=== PATIENT | female | born 1955 | race Caucasian/White ===

== ENCOUNTER → 2019-03-28 | Outpatient (CLI) | payer MEDICARE, OTHER, SELFPAY ==
[2019-03-28 19:03] VITALS: BMI 37.2
[2019-03-28 22:51] LABS: Absolute Lymphocyte Count 2.37 X10^3/uL (0.83-4.51); Absolute Neutrophil Count 3.5 X10^3/uL (2.0-7.7); Basophil# 0.06 X10^3/uL; Basophil% 0.9 % (0-1); Eosinophil# 0.35 X10^3/uL; Eosinophils% 5.1 % (0-5); Hematocrit 39.6 % (37-47); Hemoglobin 13.1 g/dL (12.0-15.0); Lymphocyte # 2.37 X10^3/ul (4.0); Lymphocyte % 34.2 % (19-41); Mean Corp Hgb Conc 33.1 g/dL (32-36); Mean Corpuscular Volume 90.8 fL (81-99); Mean Platelet Vol. 10.6 fl (6.2-12.0); Monocyte% 8.7 % (0-10); NRBC Flagged by Analyzer 0 % (0-5); Neutrophil # 3.54 X10^3/uL (2.7-7.7); Platelet Count 282 K/mm3 (150-450); RBC Distribution Width CV 12.6 % (11.6-14.6); RBC Distribution Width SD 41.8 fl (35.1-43.9); Red Blood Count 4.36 M/mm3 (4.2-5.4); White Blood Count 6.9 K/mm3 (4.4-11.0)
[2019-03-28 23:13] LABS: AST(SGOT) 28 U/L (15-37); Alanine Aminotransfer ALT/SGPT 35 U/L (13-56); Albumin, Serum 3.6 g/dL (3.2-5.0); Alkaline Phosphatase 133 U/L (45-117); Anion Gap 3 (5-15); BUN 17 mg/dL (7-18); BUN/Creat Ratio 17.2 RATIO (10-20); Calcium,Total 8.4 mg/dL (8.5-10.1); Chloride 109 mmol/L (98-107); Cholesterol 143 mg/dL (200); Creatinine, Serum 0.99 mg/dL (0.55-1.02); EST Glomerular Filtration Rate 60 mL/min (>60); Est Glom Filt Rate - Afr Amer 72 mL/min (>60); Globulin 3.6 g/dL (2.2-4.2); Glucose 90 mg/dL (74-106); High Density Lipoprotein 67 mg/dL; Potassium 3.4 mmol/L (3.5-5.1); Protein, Total 7.2 g/dL (6.4-8.2); Sodium Level 141 mmol/L (136-145); Thyroid Stim Hormone (TSH) 2.85 uIU/mL (0.358-3.74); Triglycerides 113 mg/dL; Very Low Density Lipoprotein 23 mg/dL (5-40)
== END | disposition home or self-care (01) ==
PROVIDERS: Referring Provider Nurse Practitioner; Visit Provider Nurse Practitioner
DX: I10 Essential (primary) hypertension (principal); E78.5 Hyperlipidemia, unspecified; E03.9 Hypothyroidism, unspecified
CPT/HCPCS: 80053; 80061; 84443; 85025

== ENCOUNTER → 2021-02-21 | Outpatient (CLI) | payer MEDICARE, OTHER, SELFPAY ==
[2021-02-21 17:09] VITALS: BMI 34.4
[2021-02-21 21:58] LABS: Absolute Lymphocyte Count 2.61 X10^3/uL (0.83-4.51); Absolute Neutrophil Count 3.2 X10^3/uL (2.0-7.7); Basophil# 0.08 X10^3/uL; Basophil% 1.2 % (0-1); Eosinophil# 0.36 X10^3/uL; Eosinophils% 5.4 % (0-5); Hematocrit 41.4 % (37-47); Hemoglobin 13.5 g/dL (12.0-15.0); Lymphocyte # 2.61 X10^3/ul (0.83-4.51); Lymphocyte % 38.8 % (19-41); Mean Corp Hgb Conc 32.6 g/dL (32-36); Mean Corpuscular Hgb 29.5 pg (27.0-32.0); Mean Corpuscular Volume 90.4 fL (81-99); Mean Platelet Vol. 11.1 fl (6.2-12.0); Monocyte# 0.47 X10^3/uL; NRBC Flagged by Analyzer 0 % (0-5); Neutrophil # 3.18 X10^3/uL (2.7-7.7); Neutrophil % 47.3 % (47-70); Platelet Count 296 K/mm3 (150-450); RBC Distribution Width CV 12.3 % (11.6-14.6); RBC Distribution Width SD 40.6 fl (35.1-43.9); Red Blood Count 4.58 M/mm3 (4.2-5.4); White Blood Count 6.7 K/mm3 (4.4-11.0)
[2021-02-21 22:22] LABS: AST(SGOT) 29 U/L (15-37); Alanine Aminotransfer ALT/SGPT 36 U/L (13-56); Albumin, Serum 3.6 g/dL (3.2-5.0); Alkaline Phosphatase 112 U/L (45-117); Anion Gap 8 (5-15); BUN 16 mg/dL (7-18); BUN/Creat Ratio 16.5 RATIO (10-20); Chloride 101 mmol/L (98-107); Cholesterol 158 mg/dL (200); Creatinine, Serum 0.97 mg/dL (0.55-1.02); EST Glomerular Filtration Rate 61 mL/min (>60); Est Glom Filt Rate - Afr Amer 74 mL/min (>60); Globulin 3.7 g/dL (2.2-4.2); Glucose 137 mg/dL (74-106); High Density Lipoprotein 72 mg/dL; Protein, Total 7.3 g/dL (6.4-8.2); Sodium Level 137 mmol/L (136-145); Thyroid Stim Hormone (TSH) 0.28 uIU/mL (0.358-3.74); Triglycerides 128 mg/dL; Very Low Density Lipoprotein 26 mg/dL (5-40)
[2021-02-24 16:40] LABS: Vitamin D 1,25-Dihydroxy 53.1 pg/mL (19.9-79.3)
== END | disposition home or self-care (01) ==
PROVIDERS: Visit Provider Nurse Practitioner
DX: E03.9 Hypothyroidism, unspecified (principal); E78.5 Hyperlipidemia, unspecified; E55.9 Vitamin D deficiency, unspecified
CPT/HCPCS: 80053; 80061; 82652; 84443; 85025

== ENCOUNTER → 2022-01-26 | Outpatient (CLI) | payer MEDICARE, OTHER, SELFPAY ==
[2022-01-26 22:51] LABS: Absolute Lymphocyte Count 2.37 X10^3/uL (0.83-4.51); Absolute Neutrophil Count 2.7 X10^3/uL (2.0-7.7); Basophil# 0.08 X10^3/uL; Basophil% 1.4 % (0-1); Eosinophil# 0.36 X10^3/uL; Eosinophils% 6.1 % (0-5); Lymphocyte # 2.37 X10^3/ul (0.83-4.51); Mean Corp Hgb Conc 34.1 g/dL (32-36); Mean Corpuscular Hgb 30.1 pg (27.0-32.0); Mean Corpuscular Volume 88.2 fL (81-99); Mean Platelet Vol. 10.9 fl (6.2-12.0); Monocyte# 0.38 X10^3/uL; Monocyte% 6.4 % (0-10); NRBC Flagged by Analyzer 0 % (0-5); Neutrophil # 2.73 X10^3/uL (2.7-7.7); Neutrophil % 46.1 % (47-70); Platelet Count 312 K/mm3 (150-450); RBC Distribution Width CV 12.5 % (11.6-14.6); RBC Distribution Width SD 40.4 fl (35.1-43.9); Red Blood Count 4.65 M/mm3 (4.2-5.4); White Blood Count 5.9 K/mm3 (4.4-11.0)
[2022-01-26 23:10] LABS: ALB/GLOB Ratio 1.1 RATIO (0.9-2.4); AST(SGOT) 30 U/L (15-37); Alanine Aminotransfer ALT/SGPT 36 U/L (13-56); Albumin, Serum 3.8 g/dL (3.2-5.0); Alkaline Phosphatase 122 U/L (45-117); Anion Gap 6 (5-15); BUN 17 mg/dL (7-18); BUN/Creat Ratio 21.1 RATIO (10-20); Calcium,Total 9.3 mg/dL (8.5-10.1); Chloride 107 mmol/L (98-107); Cholesterol 175 mg/dL (200); EST Glomerular Filtration Rate 75 mL/min (>60); Est Glom Filt Rate - Afr Amer 91 mL/min (>60); Globulin 3.6 g/dL (2.2-4.2); Glucose 114 mg/dL (74-106); High Density Lipoprotein 83 mg/dL; Potassium 3.6 mmol/L (3.5-5.1); Protein, Total 7.4 g/dL (6.4-8.2); Sodium Level 140 mmol/L (136-145); Triglycerides 88 mg/dL; Very Low Density Lipoprotein 18 mg/dL (5-40)
[2022-01-30 19:46] LABS: Vitamin D 1,25-Dihydroxy 63.9 pg/mL (24.8-81.5)
== END | disposition home or self-care (01) ==
PROVIDERS: Visit Provider Nurse Practitioner
DX: I10 Essential (primary) hypertension (principal); E78.5 Hyperlipidemia, unspecified; E55.9 Vitamin D deficiency, unspecified
CPT/HCPCS: 80053; 80061; 82652; 85025

== ENCOUNTER → 2023-02-15 | Outpatient (CLI) | payer MEDICARE, OTHER, SELFPAY ==
[2023-02-15 22:28] LABS: Absolute Lymphocyte Count 2.95 X10^3/uL (0.83-4.51); Absolute Neutrophil Count 3.1 X10^3/uL (2.0-7.7); Basophil% 1.4 % (0-1); Eosinophil# 0.43 X10^3/uL; Hematocrit 42.5 % (37-47); Hemoglobin 13.9 g/dL (12.0-15.0); Lymphocyte # 2.95 X10^3/ul (0.83-4.51); Lymphocyte % 41.3 % (19-41); Mean Corp Hgb Conc 32.7 g/dL (32-36); Mean Corpuscular Hgb 29.9 pg (27.0-32.0); Mean Corpuscular Volume 91.4 fL (81-99); Mean Platelet Vol. 11.3 fl (6.2-12.0); Monocyte# 0.52 X10^3/uL; Monocyte% 7.3 % (0-10); NRBC Flagged by Analyzer 0 % (0-5); Neutrophil # 3.14 X10^3/uL (2.7-7.7); Neutrophil % 43.9 % (47-70); Platelet Count 336 K/mm3 (150-450); RBC Distribution Width CV 12.6 % (11.6-14.6); RBC Distribution Width SD 41.6 fl (35.1-43.9); Red Blood Count 4.65 M/mm3 (4.2-5.4); White Blood Count 7.2 K/mm3 (4.4-11.0)
[2023-02-15 22:54] LABS: ALB/GLOB Ratio 0.9 RATIO (0.9-2.4); AST(SGOT) 33 U/L (15-37); Alanine Aminotransfer ALT/SGPT 44 U/L (13-56); Albumin, Serum 3.7 g/dL (3.2-5.0); Alkaline Phosphatase 128 U/L (45-117); Anion Gap 8 (5-15); BUN 19 mg/dL (7-18); BUN/Creat Ratio 17.6 RATIO (10-20); Calcium,Total 9.5 mg/dL (8.5-10.1); Chloride 108 mmol/L (98-107); Cholesterol 183 mg/dL (200); Creatinine, Serum 1.08 mg/dL (0.55-1.02); EST Glomerular Filtration Rate 54 mL/min (>60); Est Glom Filt Rate - Afr Amer 65 mL/min (>60); Globulin 3.9 g/dL (2.2-4.2); Glucose 165 mg/dL (74-106); High Density Lipoprotein 68 mg/dL; Protein, Total 7.6 g/dL (6.4-8.2); Sodium Level 142 mmol/L (136-145); Thyroid Stim Hormone (TSH) 1.24 uIU/mL (0.358-3.74); Triglycerides 191 mg/dL; Very Low Density Lipoprotein 38 mg/dL (5-40)
== END | disposition home or self-care (01) ==
PROVIDERS: Referring Provider Nurse Practitioner; Visit Provider Nurse Practitioner
DX: I10 Essential (primary) hypertension (principal); E78.5 Hyperlipidemia, unspecified; E03.9 Hypothyroidism, unspecified
CPT/HCPCS: 80053; 80061; 84443; 85025

== ENCOUNTER → 2024-03-07 | Outpatient (CLI) | payer MEDICARE, OTHER, SELFPAY ==
[2024-03-07 21:38] LABS: Absolute Lymphocyte Count 3.05 X10^3/uL (0.83-4.51); Absolute Neutrophil Count 4.1 X10^3/uL (2.0-7.7); Basophil# 0.08 X10^3/uL; Eosinophils% 4.9 % (0-5); Hematocrit 41.6 % (37-47); Hemoglobin 13.8 g/dL (12.0-15.0); Lymphocyte # 3.05 X10^3/ul (0.83-4.51); Lymphocyte % 37.1 % (19-41); Mean Corp Hgb Conc 33.2 g/dL (32-36); Mean Corpuscular Hgb 29.6 pg (27.0-32.0); Mean Corpuscular Volume 89.1 fL (81-99); Mean Platelet Vol. 11.1 fl (6.2-12.0); Monocyte% 7.3 % (0-10); NRBC Flagged by Analyzer 0 % (0-5); Neutrophil # 4.07 X10^3/uL (2.7-7.7); Neutrophil % 49.3 % (47-70); Platelet Count 289 K/mm3 (150-450); RBC Distribution Width CV 12.7 % (11.6-14.6); RBC Distribution Width SD 41.3 fl (35.1-43.9); Red Blood Count 4.67 M/mm3 (4.2-5.4); White Blood Count 8.2 K/mm3 (4.4-11.0)
[2024-03-07 21:58] LABS: ALB/GLOB Ratio 0.9 RATIO (0.9-2.4); AST(SGOT) 35 U/L (15-37); Alanine Aminotransfer ALT/SGPT 32 U/L (13-56); Albumin, Serum 3.5 g/dL (3.2-5.0); Alkaline Phosphatase 116 U/L (45-117); Anion Gap 9 (5-15); BUN 18 mg/dL (7-18); BUN/Creat Ratio 23.3 RATIO (10-20); Calcium,Total 9.4 mg/dL (8.5-10.1); Chloride 104 mmol/L (98-107); Cholesterol 183 mg/dL (200); Creatinine, Serum 0.77 mg/dL (0.55-1.02); EST Glomerular Filtration Rate 78 mL/min (>60); Est Glom Filt Rate - Afr Amer 95 mL/min (>60); Globulin 3.7 g/dL (2.2-4.2); Glucose 114 mg/dL (74-106); High Density Lipoprotein 82 mg/dL; Potassium 3.6 mmol/L (3.5-5.1); Protein, Total 7.2 g/dL (6.4-8.2); Sodium Level 138 mmol/L (136-145); Triglycerides 158 mg/dL; Very Low Density Lipoprotein 32 mg/dL (5-40)
== END | disposition home or self-care (01) ==
PROVIDERS: Referring Provider Nurse Practitioner; Visit Provider Nurse Practitioner
DX: E78.5 Hyperlipidemia, unspecified (principal); F41.1 Generalized anxiety disorder; I10 Essential (primary) hypertension; G47.00 Insomnia, unspecified; R73.9 Hyperglycemia, unspecified; E03.9 Hypothyroidism, unspecified
CPT/HCPCS: 80053; 80061; 84443; 85025

== ENCOUNTER → 2025-03-03 | Outpatient (CLI) | payer MEDICARE, OTHER, SELFPAY ==
--- OUTSIDE RECORDS SUMMARY | 2025-03-03 21:55 | XMS RPT_ITS | CCD ---
Author Organization [facility] Care Team Providers Care Truck Dock Material Mover Name Role Phone BHUPINDER DOMINGUEZ Unavailable Unavailable BHUPINDER DOMINGUEZ Unavailable Unavailable Vincenzo LACE SEWER.Bhupinder MOORE Primary Care Provide r Vincenzo LACE SEWER.Bhupinder MOORE Primary Care Provide r VEL RITTER Attending Unavailable BHUPINDER DOMINGUEZ Primary Care Unavailable VEL RITTER Attending Unavailable BHUPINDER DOMINGUEZ Primary Care Unavailable ROBERT KIMBLE Referring Unavailable Vincenzo MANAGER GENERAL, Bhupinder Referring Unavailable Vincenzo MANAGER GENERAL, Bhupinder Attending Unavailable Care Physician, No Primary Primary Care Unava ilable Vincenzo LACE SEWER.Bhupinder MOORE Primary Care Provide r BHUPINDER DOMINGUEZ Referring Unavailable BHUPINDER DOMINGUEZ Primary Care Unavailable Allergies Allergy Classification Reported Allergen(s) Allergy Type Date of Onset Reaction(s) Facility (9 sources) Contrast media; Translations: [CONTRAST DYE] Propensity to adverse reactions to drug (disorder) 05-15-20 11 Swelling [facility] Other [facility] (2 sources) buPROPion Drug Allergy 04-23-20 18 NAUSEA, DIZZINESS, AND FEELS HIGH [facility] (1 source) Iodine Drug Allergy 04-23-20 18 [facility] Work Phone: (1 source) Triiodobenzoic Acids Allergy to substance 08-22-19 [facility] (1 source) buPROPion Drug Allergy 04-23-20 18 [facility] Repository (1 source) Iodinated Contrast Media Drug allergy (disorder) 08-22-19 23 [facility] Repository Medications Current Medications Medication Drug Class(es) Dates Sig (Normalized) Sig (Original) ALPRAZolam 0.5 mg oral tablet (16 sources) Benzodiazepine Start: 04-23-2018 End: 02-15-2023 take 0.5 mg by mouth once daily Alprazolam Active 0.5 MG PO DAILY February 15, 2023 4:11pm cholecalciferol 0.1 mg oral capsule (6 sources) Vitamin D cholecalciferol , vitamin D3, (VITAMIN D3) 4,000 unit cap Take by mouth once daily. Active Comment on above: Take by mouth once d aily. CYANOCOBALAMIN, VITAMIN B-12, (VITAMIN B-12 ORAL) (6 sources) CYANOCOBALAMIN, VITAMIN B-12, (VITAMIN B-12 ORAL) Take by mouth once daily. Active CYANOCOBALAMIN, VITAMIN B-12, (VITAMIN B-12 ORAL) Take by mouth once daily. 0 Active Comment on above: Take by mouth once d aily. ezetimibe / Simvastatin (6 sources) HMG-CoA Reductase Inhibitor, Dietary Cholesterol Absorption Inhibitor ezetimibe 10 mg tab 10 mg, simvastatin 10 mg tab 10 mg Take by mouth once daily. Active ezetimibe 10 mg tab 10 mg, simvastatin 10 mg tab 10 mg Take by mouth once daily. 0 Active Comment on above: Take by mouth once d aily. Losartan (6 sources) Angiotensin 2 Receptor Susan L OSARTAN POTASSIUM (LOSARTAN ORAL) Take by mouth. Active LOSARTAN POTASSI UM (LOSARTAN ORAL) Take by mouth. 0 Active Comment on above: Take by mouth. meclizine hydrochloride 12.5 mg oral tablet (2 sources) Antiemetic Start: 1 take 12.5 mg by mouth three times daily Meclizine Active 12.5 MG PO THREE TIMES A DAY February 21, 2021 12:00am naproxen 500 mg oral tablet (4 sources) Nonsteroidal Anti-inflammatory Drug Start: 3 take 1 tablet by mouth twice daily at mealtime naproxen (NAPROSYN) 500 mg tablet Take 1 tablet by mouth twice daily with meals. Take with food. 28 tablet 04/17/2023 Active Comment on above: Take 1 tablet by [facility] th twice daily with meals. Take with food. zolpidem tartrate 10 mg oral tablet (16 sources) gamma-Aminobutyric Acid-ergic Agonist Start: 8 End: 3 take 10 mg by mouth at bedtime Zolpidem Active 10 MG PO AT BEDTIME February 15, 2023 4:12pm Completed/Discontinued Medications Medication Drug Class(es) Dates Sig (Normalized) Sig (Original) atomoxetine 25 mg oral capsule (20 sources) Norepinephrine Reuptake Inhibitor Start: 04-23-2018 End: 02-15-2023 take 1 capsule by mouth once daily Atomoxetine (Strattera) 25 mg capsule Discontinued 25 MG PO .QD June 24, 2018 3:34pm March 28, 2019 7:09pm ATOMOXETINE HCL (STRATTERA ORAL) Take by mouth. Active ATOMOXETINE HCL (STRATTERA ORAL) Take by mouth. 0 Active Comment on above: Take by mouth. azithromycin 250 mg oral tablet (2 sources) Macrolide Antimicrobial Start: End: Azithromycin Discontinued 250 MG PO daily 6 April 23, 2019 12:00am April 28, 2019 12:08am 2 po qd for 1 day then 1 po qd for 4 days with food or after eating ciprofloxacin 500 mg oral tablet (2 sources) Quinolone Antimicrobial Start: End: take 1 tablet by mouth twice daily Ciprofloxacin Hcl (Cipro) 500 mg tablet Discontinued 500 MG PO TWICE A DAY May 15, 2022 5:32pm February 15, 2023 4:09pm cloNIDine hydrochloride 0.1 mg oral tablet (12 sources) Central alpha-2 Adrenergic Agonist Start: End: take 0.1 mg by mouth at bedtime Clonidine Hcl Discontinued 0.1 MG PO BEDTIME June 24, 2018 3:34pm March 28, 2019 7:09pm hydroCHLOROthiazide 12.5 mg / losartan potassium 50 mg oral tablet (17 sources) Thiazide Diuretic, Angiotensin 2 Receptor Susan Start: End: take 1 tablet by mouth once daily Losartan-Hydrochlor othiazide Discontinued 1 TABLET PO DAILY August 17, 2021 1:25pm January 26, 2022 3:10pm Start: 04-23-2018 End: 02-15-2023 take 1 tablet by mouth once daily Losartan-Hydrochlorothiazide Discontinue d 1 TABLET PO DAILY June 24, 2018 3:35pm March 28, 2019 7:09pm levothyroxine sodium 0.15 mg oral tablet (20 sources) l-Thyroxine Start: 04-04-2019 End: 02-16-2023 take 150 ug by mouth once daily Levothyroxine Discontinued 150 MCG PO DAILY April 10, 2019 10:16pm March 09, 2020 5:20pm Start: 04-23-2018 End: 04-04-2019 take 1 capsule by mouth once daily levothyroxine 150 mcg capsule Discontinued 150 MCG PO DAILY April 02, 2019 7:47pm April 04, 2019 6:54pm LEVOTHYROXINE SO DIUM (SYNTHROID ORAL) Take by mouth. Active LEVOTHYROXINE SO DIUM (SYNTHROID ORAL) Take by mouth. 0 Active Comment on above: Take by mouth. omeprazole 20 mg delayed release oral capsule (15 sources) Proton Pump Inhibitor Start: 04-23-2018 End: 02-15-2023 take 20 mg by mouth once daily Omeprazole Discontinued 20 MG PO DAILY June 24, 2018 3:34pm March 28, 2019 7:09pm predniSONE 10 mg oral tablet (1 source) Start: 02-06-2022 End: 02-15-2023 Prednisone Discontinued 20 MG PO TWICE A DAY 30 February 06, 2022 12:00am February 15, 2023 4:11pm 2 po bid 4D,1 po bid for 4 D, 1 po qd for 4 D 1/2 po qd for 2 days sertraline 100 mg oral tablet (20 sources) Serotonin Reuptake Inhibitor Start: 04-23-2018 End: 02-15-2023 take 100 mg by mouth once daily Sertraline Discontinued 100 MG PO DAILY June 24, 2018 3:35pm March 28, 2019 7:09pm take 3 tablets by mouth once juan antonio ly sertraline 50 mg ORAL tablet Take 150 mg by mouth once daily. Active Comment on above: Take 150 mg by mouth once daily. simvastatin 20 mg oral tablet (15 sources) HMG-CoA Reductase Inhibitor Start: End: take 20 mg by mouth at bedtime Simvastatin Discontinued 20 MG PO AT BEDTIME June 24, 2018 3:35pm March 28, 2019 7:09pm Problems Active Problems Problem Classification Problem Date Documented Da te Episodic/Chronic Allergic reactions (2 sources) Contact dermatitis due to poison evens; Translations: [Allergic contact dermatitis due to plants, except food] 02-06-2022 Episodic Anxiety disorders (1 source) Anxiety disorder; Translations: [Anxiety disorder, unspecified] 05-16-2022 Chronic Conditions associated with dizziness or vertigo (2 sources) Vertigo; Translations: [Dizziness and giddiness] 02-22-2021 Episodic Diabetes mellitus without complication (2 sources) Hyperglycemia; Translations: [Hyperglycemia, unspecified] 03-28-2019 Episodic Disorders of lipid metabolism (9 sources) Hyperlipidemia; Translations: [Hyperlipidemia, unspecified] Onset: 02-08-2011 02-08-2011 Chronic Essential hypertension (8 sources) Hypertensive disorder; Translations: [Essential (primary) hypertension] Onset: 02-08-2011 02-08-2011 Chronic Genitourinary symptoms and ill-defined conditions (1 source) Dysuria; Translations: [Dysuria] 03-13-2022 Episodic Nutritional deficiencies (2 sources) Vitamin D deficiency; Translations: [Vitamin D deficiency, unspecified] 02-21-2021 Chronic Other bone disease and musculoskeletal deformities (2 sources) Osteopenia; Translations: [Other specified disorders of bone density and structure, unspecified site] 03-28-2019 Episodic Other bone disease and musculoskeletal deformities (2 sources) Bone density below reference range; Translations: [Disorder of bone density and structure, unspecified] 03-28-2019 Episodic Other connective tissue disease (2 sources) Left achilles tendonitis; Translations: [Achilles tendinitis, left leg] 05-19-2023 Episodic Other screening for suspected conditions (not mental disorders or infectious disease) (3 sources) Patient encounter status; Translations: [Encounter for screening mammogram for malignant neoplasm of breast] Onset: 06-12-2024 04-22-2019 Episodic Other upper respiratory infections (2 sources) Maxillary sinusitis; Translations: [Chronic maxillary sinusitis] 04-23-2019 Chronic Other upper respiratory infections (2 sources) Pharyngitis; Translations: [Acute pharyngitis, unspecified] 04-23-2019 Episodic Residual codes; unclassified (6 sources) Sleep apnea; Translations: [Sleep apnea, unspecified] Onset: 02-08-2011 02-08-2011 Chronic Residual codes; unclassified (2 sources) Insomnia; Translations: [Insomnia, unspecified] 03-28-2019 Episodic Residual codes; unclassified (1 source) Pain; Translations: [Pain, unspecified] 04-20-2023 Episodic Thyroid disorders (8 sources) Hypothyroidism; Translations: [Hypothyroidism, unspecified] Onset: 08-19-2010 08-19-2010 Chronic Urinary tract infections (1 source) Cystitis; Translations: [Cystitis, unspecified without hematuria] 03-13-2022 Episodic Past or Other Problems Problem Classification Problem Date Documented Da te Episodic/Chronic Unclassified (1 source) FRACTURED KNEES 02-20-2022 Results Test Name Value Interpretation Reference Range Facility DBT Breast - bilateral scree raghu 06-12-2024 IMPRESSION: There are no suspicious mammographic findings in either breast. Routine screening mammogram is recommended. Annual mammogram will be due in 1 year. BI-RADS Category 1: Negative RISK: Based on the Tyrer-Cuzick (TC) risk assessment model, this patient has a 2.0% lifetime risk of developing breast cancer, meaning they are at average risk for developing breast cancer. However, this is only an estimate based on available history provided on the patient's questionnaire. We encourage all patients to talk with their providers about these results, further recommendations for managing breast health, and appropriate supplemental screening options if the patient has dense breast tissue. Interpreting Radiologist: Vinh Morales M.D. Electronically signed on: 06/12/2024 Director Agricultural Services: SHARMILA Transcribe Date/Time: Jun 12 2024 12:58P Dictated by : VINH MORALES MD This examination was interpreted and the report reviewed and electronically signed by: VINH MORALES MD on Jun 12 2024 4:32PM [facility] * * *Final Report* * * DATE OF EXAM: Jun 12 2024 1:28PM JIMENA [id number] - [facility] SCREENING W KESHAV / PROCEDURE REASON: Z12.31 SCREENING * * * * Physician Interpretation * * * * [place] [place] [address] #[id number] - [facility] SCREENING W KESHAV HISTORY: Patient is 69 years old and is seen for screening. No current complaints. Patient states no personal history of breast cancer. Patient states no personal history of other cancers. COMPARISON STUDIES: The present examination has been compared to prior imaging studies dated 05/08/2019 (mammogram), 05/11/2022 (mammogram) and 05/15/2022 (mammogram). MAMMOGRAM TECHNIQUE: The study was acquired using full field digital technology and interpreted from soft copy. Digital Breast Tomosynthesis (DBT) images were obtained and used to assist in the interpretation of this examination. Computer-aided detection was utilized by the radiologist in the interpretation of this examination. MAMMOGRAM FINDINGS: The breasts are almost entirely fatty. No suspicious masses, calcifications or other abnormalities are seen in either breast. There are no significant changes from the prior study. [facility] Provider, [facility] - 06/12/2024 * * *Final Report* * * DATE OF EXAM: Jun 12 2024 1:28PM JIMENA [id number] - [facility] SCREENING W KESHAV / PROCEDURE REASON: Z12.31 SCREENING * * * * Physician Interpretation * * * * [place] [address] #[id number] - [facility] SCREENING W KESHAV HISTORY: Patient is 69 years old and is seen for screening. No current complaints. Patient states no personal history of breast cancer. Patient states no personal history of other cancers. COMPARISON STUDIES: The present examination has been compared to prior imaging studies dated 05/08/2019 (mammogram), 05/11/2022 (mammogram) and 05/15/2022 (mammogram). MAMMOGRAM TECHNIQUE: The study was acquired using full field digital technology and interpreted from soft copy. Digital Breast Tomosynthesis (DBT) images were obtained and used to assist in the interpretation of this examination. Computer-aided detection was utilized by the radiologist in the interpretation of this examination. MAMMOGRAM FINDINGS: The breasts are almost entirely fatty. No suspicious masses, calcifications or other abnormalities are seen in either breast. There are no significant changes from the prior study. IMPRESSION IMPRESSION: There are no suspicious mammographic findings in either breast. Routine screening mammogram is recommended. Annual mammogram will be due in 1 year. BI-RADS Category 1: Negative RISK: Based on the Tyrer-Cuzick (TC) risk assessment model, this patient has a 2.0% lifetime risk of developing breast cancer, meaning they are at average risk for developing breast cancer. However, this is only an estimate based on available history provided on the patient's questionnaire. We encourage all patients to talk with their providers about these results, further recommendations for managing breast health, and appropriate supplemental screening options if the patient has dense breast tissue. Interpreting Radiologist: Vinh Morales M.D. Electronically signed on: 06/12/2024 Director Agricultural Services: SHARMILA Transcribe Date/Time: Jun 12 2024 12:58P Dictated by : VINH MORALES MD This examination was interpreted and the report reviewed and electronically signed by: VINH MORALES MD on Jun 12 2024 4:32PM EST [facility] Radiology Study observation (narrative) [facility] DBT Breast - bilateral scree ningOrdered By: [facility] Provider on 06-12-2024 [facility]IA SCREENING W TOMOon 06-12 [facility] SCREENING W KESHAV * * *Final Report* * * DATE OF EXAM: Jun 12 2024 1:28PM JIMENA [id number] - [facility] SCREENING W KESHAV / PROCEDURE REASON: Z12.31 SCREENING * * * * Physician Interpretation * * * * [place] [address] #[id number] - [facility] SCREENING W KESHAV HISTORY: Patient is 69 years old and is seen for screening. No current complaints. Patient states no personal history of breast cancer. Patient states no personal history of other cancers. COMPARISON STUDIES: The present examination has been compared to prior imaging studies dated 05/08/2019 (mammogram), 05/11/2022 (mammogram) and 05/15/2022 (mammogram). MAMMOGRAM TECHNIQUE: The study was acquired using full field digital technology and interpreted from soft copy. Digital Breast Tomosynthesis (DBT) images were obtained and used to assist in the interpretation of this examination. Computer-aided detection was utilized by the radiologist in the interpretation of this examination. MAMMOGRAM FINDINGS: The breasts are almost entirely fatty. No suspicious masses, calcifications or other abnormalities are seen in either breast. There are no significant changes from the prior study. IMPRESSION: There are no suspicious mammographic findings in either breast. Routine screening mammogram is recommended. Annual mammogram will be due in 1 year. BI-RADS Category 1: Negative RISK: Based on the Tyrer-Cuzick (TC) risk assessment model, this patient has a 2.0% lifetime risk of developing breast cancer, meaning they are at average risk for developing breast cancer. However, this is only an estimate based on available history provided on the patient's questionnaire. We encourage all patients to talk with their providers about these results, further recommendations for managing breast health, and appropriate supplemental screening options if the patient has dense breast tissue. Interpreting Radiologist: Vinh Morales M.D. Electronically signed on: 06/12/2024 Director Agricultural Services: SHARMILA Transcribe Date/Time: Jun 12 2024 12:58P Dictated by : VINH MORALES MD This examination was interpreted and the report reviewed and electronically signed by: VINH MORALES MD on Jun 12 2024 4:32PM EST [id number] CN Normal [facility] CBC W/Diff, Automatedon 08- Absolute Lymph 3.05 X10 3/uL Normal 0.83-4.51 [facility] Comment on above: Performed By: #### L 500.4100, L100.0100, L500.4050, [id number] #### [facility] [address] [place], [address] Absolute Neut 4.1 X10 3/uL Normal 2.0-7.7 [facility] Comment on above: Performed By: #### L 500.4100, L100.0100, L500.4050, [id number] #### [facility] [address] [place], [address] Basophils/100 WBC (Bld) 1.0 % Normal 0-1 [facility] Comment on above: Performed By: #### L 500.4100, L100.0100, L500.4050, [id number] #### [facility] [address] [place], [address] Eosinophils/100 WBC (Bld) 4.9 % Normal 0-5 [facility] Comment on above: Performed By: #### L 500.4100, L100.0100, L500.4050, [id number] #### [facility] [address] [place], [address] Erythrocyte distribution width (RBC) [Ratio] 12.7 % Normal 11.6-14.6 [facility] Comment on above: Performed By: #### L 500.4100, L100.0100, L500.4050, [id number] #### [facility] [address] [place], [address] Hematocrit (Bld) [Volume fraction] 41.6 % Normal 37-47 [facility] Comment on above: Performed By: #### L 500.4100, L100.0100, L500.4050, [id number] #### [facility] [address] [place], [address] Hemoglobin (Bld) [Mass/Vol] 13.8 g/dL Normal 12.0-15.0 [facility] Comment on above: Performed By: #### L 500.4100, L100.0100, L500.4050, [id number] #### [facility] [address] [place], [address] IG% 0.400 Normal 0.0-0.9 [facility] Comment on above: Result Comment: IG% - Immature Granulocytes (promyelocytes, myelocytes and metamyelocytes) > 1% indicates that a LEFT SHIFT is Present. Performed By: #### L 500.4100, L100.0100, L500.4050, [id number] #### [facility] [address] [place], [address] Lymphocytes/100 WBC (Bld) 37.1 % Normal 19-41 [facility] Comment on above: Performed By: #### L 500.4100, L100.0100, L500.4050, [id number] #### [facility] [address] [place], [address] MCH (RBC) [Entitic mass] 29.6 pg Normal 27.0-32.0 [facility] Comment on above: Performed By: #### L 500.4100, L100.0100, L500.4050, [id number] #### [facility] [address] [place], [address] MCHC (RBC) [Mass/Vol] 33.2 g/dL Normal 32-36 [facility] Comment on above: Performed By: #### L 500.4100, L100.0100, L500.4050, [id number] #### [facility] [address] [place], [address] MCV (RBC) [Entitic vol] 89.1 fL Normal 81-99 [facility] Comment on above: Performed By: #### L 500.4100, L100.0100, L500.4050, [id number] #### [facility] [address] [place], [address] Monocytes/100 WBC (Bld) 7.3 % Normal 0-10 [facility] Comment on above: Performed By: #### L 500.4100, L100.0100, L500.4050, [id number] #### [facility] [address] [place], [address] Neutrophils/100 WBC (Bld) 49.3 % Normal 47-70 [facility] Comment on above: Performed By: #### L 500.4100, L100.0100, L500.4050, [id number] #### [facility] [address] [place], [address] Nucleated RBC (Bld) [#/Vol] 0 10*3/uL Normal 0-5 [facility] Comment on above: Performed By: #### L 500.4100, L100.0100, L500.4050, [id number] #### [facility] [address] [place], [address] Platelet mean volume (Bld) [Entitic vol] 11.1 fL Normal 6.2-12.0 [facility] Comment on above: Performed By: #### L 500.4100, L100.0100, L500.4050, [id number] #### [facility] [address] [place], [address] Platelets (Bld) [#/Vol] 289 10*3/uL Normal 150-450 [facility] Comment on above: Performed By: #### L 500.4100, L100.0100, L500.4050, [id number] #### [facility] [address] [place], [address] RBC (Bld) [#/Vol] 4.67 10*6/uL Normal 4.2-5.4 [facility] Comment on above: Performed By: #### L 500.4100, L100.0100, L500.4050, [id number] #### [facility] [address] [place], [address] RDW SD 41.3 fl Normal 35.1-43.9 [facility] Comment on above: Performed By: #### L 500.4100, L100.0100, L500.4050, [id number] #### [facility] [address] [place], [address] WBC (Bld) [#/Vol] 8.2 10*3/uL Normal 4.4-11.0 [facility] Comment on above: Performed By: #### L 500.4100, L100.0100, L500.4050, [id number] #### [facility] [address] [place], [address] Comprehensive Metabolic Prof [facility] 03-07-2024 Albumin [Mass/Vol] 3.5 g/dL Normal 3.2-5.0 [facility] Comment on above: Performed By: #### L 500.4100, L100.0100, L500.4050, [id number] #### [facility] [address] [place], [address] Albumin/Globulin [Mass ratio] 0.9 {ratio} Normal 0.9-2.4 [facility] Comment on above: Performed By: #### L 500.4100, L100.0100, L500.4050, [id number] #### [facility] [address] [place], [address] ALK P 116 U/L Normal 45-117 [facility] Comment on above: Performed By: #### L 500.4100, L100.0100, L500.4050, [id number] #### [facility] [address] [place], [address] ALT [Catalytic activity/Vol] 32 U/L Normal 13-56 [facility] Comment on above: Performed By: #### L 500.4100, L100.0100, L500.4050, [id number] #### [facility] [address] [place], [address] AST [Catalytic activity/Vol] 35 U/L Normal 15-37 [facility] Comment on above: Performed By: #### L 500.4100, L100.0100, L500.4050, [id number] #### [facility] [address] [place], [address] Bilirubin [Mass/Vol] 0.40 mg/dL Normal 0.20-1.00 [facility] Comment on above: Result Comment: For patients on eltrombopag therapy, use of Dimension [place] TBIL is not recommended. Performed By: #### L 500.4100, L100.0100, L500.4050, [id number] #### [facility] [address] [place], [address] BUN/CRE 23.3 RATIO High 10-20 [facility] Comment on above: Performed By: #### L 500.4100, L100.0100, L500.4050, [id number] #### [facility] [address] [place], [address] CA,Total 9.4 mg/dL Normal 8.5-10.1 [facility] Comment on above: Performed By: #### L 500.4100, L100.0100, L500.4050, [id number] #### [facility] [address] [place], [address] Chloride [Moles/Vol] 104 mmol/L Normal 98-107 [facility] [facility] Comment on above: Performed By: #### L 500.4100, L100.0100, L500.4050, [id number] #### [facility] [address] [place], [address] CO2 [Moles/Vol] 25.0 mmol/L Normal 21.0-32.0 [facility] Comment on above: Performed By: #### L 500.4100, L100.0100, L500.4050, [id number] #### [facility] [address] [place], [address] Creatinine [Mass/Vol] 0.77 mg/dL Normal 0.55-1.02 [facility] Comment on above: Result Comment: The validity of the calculated GFR GFRAA in patients over 70 years has not been determined. Clinical correlation is essential. Performed By: #### L 500.4100, L100.0100, L500.4050, [id number] #### [facility] [address] [place], [address] EST GFR - AA 95 mL/min Normal >60 [facility] Comment on above: Result Comment: Afri can Slovak GFR Calc Performed By: #### L 500.4100, L100.0100, L500.4050, [id number] #### [facility] [address] [place], [address] GAP 9 Normal 5-15 [facility] Comment on above: Performed By: #### L 500.4100, L100.0100, L500.4050, [id number] #### [facility] [address] [place], [address] GFR/1.73 sq M.predicted among non-blacks MDRD (S/P/Bld) [Vol rate/Area] 78 mL/min/{1.73_m2} Normal >60 [facility] Comment on above: Result Comment: Non- GFR Calc Performed By: #### L 500.4100, L100.0100, L500.4050, [id number] #### [facility] [address] [place], [address] Globulin (S) [Mass/Vol] 3.7 g/dL Normal 2.2-4.2 [facility] Comment on above: Performed By: #### L 500.4100, L100.0100, L500.4050, [id number] #### [facility] [address] [place], [address] Glucose [Mass/Vol] 114 mg/dL High 74-106 [facility] Comment on above: Result Comment: Fast ing Glucose result from 100 to 125 mg/dL suggests IMPAIRED HOMEOSTASIS per A.D.A. criteria. Performed By: #### L 500.4100, L100.0100, L500.4050, [id number] #### [facility] [address] [place], [address] Potassium [Moles/Vol] 3.6 mmol/L Normal 3.5-5.1 [facility] Comment on above: Performed By: #### L 500.4100, L100.0100, L500.4050, [id number] #### [facility] [address] [place], [address] Sodium [Moles/Vol] 138 mmol/L Normal 136-145 [facility] Comment on above: Performed By: #### L 500.4100, L100.0100, L500.4050, [id number] #### [facility] [address] [place], [address] T PROT 7.2 g/dL Normal 6.4-8.2 [facility] Comment on above: Performed By: #### L 500.4100, L100.0100, L500.4050, [id number] #### [facility] [address] [place], [address] Urea nitrogen [Mass/Vol] 18 mg/dL Normal 7-18 [facility] Comment on above: Performed By: #### L 500.4100, L100.0100, L500.4050, [id number] #### [facility] [address] [place], [address] Lipid Profileon 03-07-2024 Cholesterol [Mass/Vol] 183 mg/dL Normal 200 [facility] Comment on above: Result Comment: <200 mg/dL Desirable 200-240 mg/dL Borderline >240 mg/dL High Risk Performed By: #### L 500.4100, L100.0100, L500.4050, [id number] #### [facility] [address] [place], [address] Cholesterol in HDL [Mass/Vol] 82 mg/dL Normal [facility] Comment on above: Result Comment: The drugs N-Acetylcysteine and Metamizole may falsely depress this assay. Reference Range HDL <40 mg/dL Low HDL Cholesterol HDL >or= 60 mg/dL High HDL Cholesterol Performed By: #### L 500.4100, L100.0100, L500.4050, [id number] #### [facility] [address] [place], [address] Cholesterol in LDL [Mass/Vol] 69 mg/dL Normal 0-130 [facility] Comment on above: Performed By: #### L 500.4100, L100.0100, L500.4050, [id number] #### [facility] [address] [place], [address] Cholesterol in VLDL [Mass/Vol] 32 mg/dL Normal 5-40 [facility] Comment on above: Performed By: #### L 500.4100, L100.0100, L500.4050, [id number] #### [facility] [address] [place], [address] Triglyceride [Mass/Vol] 158 mg/dL Normal [facility] Comment on above: Result Comment: The drugs N-Acetylcysteine and Metamizole may falsely depress this assay. Serum Triglycerides Reference Interval Normal <150 mg/dL Borderline high 150 - 199 mg/dL High 200 - 499 mg/dL Very High > or = 500 mg/dL Performed By: #### L 500.4100, L100.0100, L500.4050, [id number] #### [facility] [address] [place], [address] Thyroid Stim Hormone (TSH)on 03-07-2024 TSH 1.960 uIU/mL Normal 0.358-3.740 [facility] Comment on above: Performed By: #### L 500.4100, L100.0100, L500.4050, [id number] #### [facility] [address] [place], [address] CNOVon 05-04-2023 CNOV Office Visit (ORMDNA) EMMIE MOSS ([id number]) 1955 F Date Time Provider Department 05/04/23 1:00 PM VEL RITTER During your visit today, we recorded the following information about you: Vel Ritter MD 05/28/2023 12:43 PM Signed REASON FOR VISIT / CHIEF COMPLAINT CHIEF COMPLAINT: Emmie Moss is a 68 year old female who presents today for follow up office visit. Patient presents with: Left Ankle - Follow Up: Achilles tendonitis HISTORY OF PRESENT ILLNESS (HPI) PAIN EVALUATION 05/04/2023 1308 Pain Level: 1 Pain Location: Heel-Left Description: -- pulling Duration Amount of Time: -- ongoing Frequency: Intermittent Intervention/Comfort measure: Positioning Here for follow-up of her left heel Achilles tendinitis. She feels things have improved to some degree. She has been using the heel lift and the performing the heel cord stretches as recommended at the time of her last visit Any new injury, since being seen last: No Is there any overall improvement in your condition? Yes, Does anything make it worse?: Yes, prolonged standing, walking on uneven surfaces Does anything make it better?: Yes, heel wedge, independent stretching exercises REVIEW OF SYMPTOMS: Integumentary: Any recent skin changes or rashes? No Neurologic: Any numbness or tingling in the LOCAL AREA? No Endocrine: Any diagnosis of diabetes? No Hematologic: Any recent bleeding episodes? No ALLERGIES ALLERGIES Allergen Reactions Iv Iodine [Contrast* Swelling PAST MEDICAL HISTORY PAST MEDICAL HISTORY Diagnosis Date Ott esophagus Depression with anxiety HTN (hypertension) Hypercholesterolemia Hypothyroid Menopause ovarian failure PAST SURGICAL HISTORY Procedure Laterality Date REDUCTION OF LARGE BREAST bilateral TONSILLECTOMY HX PHYSICAL EXAMINATION Vitals: There were no vitals taken for this visit. Body Habitus:no acute distress and alert and oriented Orientation: Normal: Oriented to person, place and time Psych: normal Sensation: sensation to light touch is grossly normal bilaterally Skin: Color, texture, turgor normal. No rashes or lesions Swelling: no swelling noted Stance: normal cervical posture, shoulder alignment, and no joint deformities or swelling noted Ortho Exam Left calcaneus and Achilles tendon less tender to palpation Passively dorsiflex her past neutral and flexion to 30 degrees Passive range of motion of the subtalar joint shows no significant limitations Thurman squeeze test negative Left leg neurovascularly intact Imaging : None today Proceedures : None today Assessment: Symptomatically improving left ankle Achilles tendinitis Plan: 1. Continue independent stretching exercises 2. Wean out of the heel lift as symptoms allow 3. Follow-up for repeat clinical evaluation. If she has a recurrence of her symptoms, consideration for an MRI to evaluate the integrity of the Achilles tendon will be considered Vel Ritter M.D. Department of Orthopaedic Surgery [facility] Allergies As of Date: 05/04/2023 Noted Allergy Reaction IV IODINE (CONTRAST DYE) 05/15/2011 7 - Swelling Date Reviewed: 05/04/2023 Reviewed by: Erma Lopez - Fully Assessed Reason for Visit: Follow Up [171] Cmt: Achilles tendonitis Primary Visit Diagnosis:Achilles tendinitis of left lower extremity [M76.62] Prescriptions as of 05/28/2023 - naproxen (NAPROSYN) 500 mg tablet Take 1 tablet by mouth twice daily with meals. Take with food. - cholecalciferol, vitamin D3, (VITAMIN D3) 4,000 unit cap Take by mouth once daily. - CYANOCOBALAMIN, VITAMIN B-12, (VITAMIN B-12 ORAL) Take by mouth once daily. - ezetimibe 10 mg tab 10 mg, simvastatin 10 mg tab 10 mg Take by mouth once daily. - LOSARTAN POTASSIUM (LOSARTAN ORAL) Take by mouth. - sertraline 50 mg ORAL tablet Take 150 mg by mouth once daily. - LEVOTHYROXINE SODIUM (SYNTHROID ORAL) Take by mouth. - ATOMOXETINE HCL (STRATTERA ORAL) Take by mouth. Problem List As Of Date 05/04/2023 Noted Resolved Hypothyroidism [E03.9] 08/19/2010 Sleep apnea [G47.30] 02/08/2011 Hypertension [I10] 02/08/2011 Hyperlipidemia LDL goal < 100 [E78.5] 02/08/2011 Encounter Status:Closed by VEL RITTER on 05/28/23 Normal [facility] CNOVon 04-20-2023 CNOV Office Visit (ORMDNA) EMMIE MOSS ([id number]) 1955 F Date Time Provider Department 04/20/23 9:30 AM VEL RITTER During your visit today, we recorded the following information about you: Vel Ritter MD 05/19/2023 8:05 AM Signed DEPARTMENT OF ORTHOPAEDICS HISTORY OF PRESENT ILLNESS: This is a pleasant 68 year old female, who presents today with a chief complaint of left heel pain. She complains of sharp and aching pain about the posterior aspect of approximately 3 days duration. She reports she has had the pain in the past but became worse after power washing for 3 hours. This pain is intermittent. She denies trauma. She complains that the pain is 1/10 worst. She denies nocturnal pain. The pain is exacerbated by walking, managing stairs, and prolonged standing. Previous treatments have included Rx NSAIDs. She denies proximal radiation. She denies distal radiation. She denies numbness, tingling, or electric shocks. She denies popping, clicking, catching, locking, grinding, instability, buckling, or giving way. The patient's walking tolerance is moderate before resting. She reports swelling and/or warmth. PAST MEDICAL HISTORY Diagnosis Date Ott esophagus Depression with anxiety HTN (hypertension) Hypercholesterolemia Hypothyroid Menopause ovarian failure PAST SURGICAL HISTORY Procedure Laterality Date REDUCTION OF LARGE BREAST bilateral TONSILLECTOMY HX Current Outpatient Medications Medication Sig Dispense Refill naproxen (NAPROSYN) 500 mg tablet Take 1 tablet by mouth twice daily with meals. Take with food. 28 tablet 0 cholecalciferol, vitamin D3, (VITAMIN D3) 4,000 unit cap Take by mouth once daily. CYANOCOBALAMIN, VITAMIN B-12, (VITAMIN B-12 ORAL) Take by mouth once daily. ezetimibe 10 mg tab 10 mg, simvastatin 10 mg tab 10 mg Take by mouth once daily. LOSARTAN POTASSIUM (LOSARTAN ORAL) Take by mouth. sertraline 50 mg ORAL tablet Take 150 mg by mouth once daily. LEVOTHYROXINE SODIUM (SYNTHROID ORAL) Take by mouth. ATOMOXETINE HCL (STRATTERA ORAL) Take by mouth. No current facility-administere d medications for this visit. ALLERGIES Allergen Reactions Iv Iodine [Contrast* Swelling FAMILY HISTORY Problem Relation Age of Onset Hypertension Father Cancer Father prostate, kidney Colon Cancer Maternal Grandmother Heart Paternal Grandmother Social History Tobacco Use Smoking status: Former Types: Cigarettes Quit date: 07/23/1992 Years since quittin.8 Smokeless tobacco: Never Substance Use Topics Alcohol use: No Drug use: No Occupation:homemaker Activity level: recreational, sport/activity: none REVIEW OF SYSTEMS: GENERAL: negative for malaise, significant weight loss, night sweats and fever HEENT: No changes in hearing or vision, no nose bleeds or other nasal problems., No trouble swallowing RESPIRATORY: Negative for cough, wheezing and shortness of breath CARDIOVASCULAR: Negative for chest pain, leg swelling, palpitations, orthopnea GI: Negative for abdominal discomfort, hematochezia, melena, hematemesis, change in bowel habits, diarrhea, constipation, nausea or vomiting. MUSCULOSKELETAL: See HPI. PSYCH: Negative for sleep disturbance, mood disorder and recent psychosocial stressors. HEMATOLOGY Negative for prolonged bleeding, bruising easily, and swollen nodes. ENDOCRINE: Negative for cold or heat intolerance, polyuria, polydipsia and goiter. NEURO: negative for lightheadedness, dizziness, tremor, gait imbalance, syncope and seizures. RADIOGRAPHS: XR ANKLE GENERAL 3V AP/LAT/OBL LEFT Narrative: * * *Final Report* * * DATE OF EXAM: Apr 20 2023 9:54AM AZALEA 5298 - XR ANKLE 3V AP/LAT/OBL LT / PROCEDURE REASON: [id number] * * * * Physician Interpretation * * * * PROCEDURE: Left ankle INDICATION: Pain . TECHNIQUE: XR ANKLE 3V AP/LAT/OBL LT COMPARISON: 03/26/2020 FINDINGS: No acute fracture or dislocation. Ankle mortise is symmetric. No significant degenerative change. No evidence for joint effusion. Calcifications within the Achilles tendon and a prominent plantar calcaneal spur are again noted. Impression: IMPRESSION: No acute abnormality. Director Agricultural Services: CHRISTOPHER Transcribe Date/Time: Apr 20 2023 1:56P Dictated by : BRANDI GRACE MD This examination was interpreted and the report reviewed and electronically signed by: BRANDI GRACE MD on Apr 20 2023 1:57PM EST OTHER STUDIES: Not applicable. PHYSICAL EXAM: There were no vitals taken for this visit. General: Appears stated age, obese, in no apparent distress. Psychiatric: Mood and affect appropriate. Alert and oriented x3. Musculoskeletal Exam: Gait and Station antalgic: left. LEFT FOOT AND ANKLE EXAM: Inspection: No evidence of eythema, warmth, bruising, abrasions, scars, swelling, atrophy or deformity (more content not included)... Normal [facility] XR Ankle - left AP and Later al and obliqueon 04-20-2023 IMPRESSION: No acute abnormality. Director Agricultural Services: CHRISTOPHER Transcribe Date/Time: Apr 20 2023 1:56P Dictated by : BRANDI GRACE MD This examination was interpreted and the report reviewed and electronically signed by: BRANDI GRACE MD on Apr 20 2023 1:57PM EST [facility] * * *Final Report* * * DATE OF EXAM: Apr 20 2023 9:54AM O 5298 - XR ANKLE 3V AP/LAT/OBL LT / PROCEDURE REASON: [id number] * * * * Physician Interpretation * * * * PROCEDURE: Left ankle INDICATION: Pain . TECHNIQUE: XR ANKLE 3V AP/LAT/OBL LT COMPARISON: 03/26/2020 FINDINGS: No acute fracture or dislocation. Ankle mortise is symmetric. No significant degenerative change. No evidence for joint effusion. Calcifications within the Achilles tendon and a prominent plantar calcaneal spur are again noted. [facility] Provider, [facility] - 04/20/2023 * * *Final Report* * * DATE OF EXAM: Apr 20 2023 9:54AM MDO 5298 - XR ANKLE 3V AP/LAT/OBL LT / PROCEDURE REASON: [id number] * * * * Physician Interpretation * * * * PROCEDURE: Left ankle INDICATION: Pain . TECHNIQUE: XR ANKLE 3V AP/LAT/OBL LT COMPARISON: 03/26/2020 FINDINGS: No acute fracture or dislocation. Ankle mortise is symmetric. No significant degenerative change. No evidence for joint effusion. Calcifications within the Achilles tendon and a prominent plantar calcaneal spur are again noted. IMPRESSION IMPRESSION: No acute abnormality. Director Agricultural Services: PSCB Transcribe Date/Time: Apr 20 2023 1:56P Dictated by : BRANDI GRACE MD This examination was interpreted and the report reviewed and electronically signed by: BRANDI GRACE MD on Apr 20 2023 1:57PM EST [facility] Radiology Study observation (narrative) [facility] XR Ankle - left AP and Later al and obliqueOrdered By: [facility]cf Provider on 04-20-2023 [facility] Absolute lymphocyte countOrd ered By: Bhupinder Dominguez on 02-15-2023 Lymphocytes Auto (Unsp spec) [#/Vol] 2.95 10*3/uL 0.83-4.51 [facility] Basophil percentageOrdered B y: Bhupinder Dominguez on 02-15-2023 Basophils/100 WBC (Bld) 1.4 % 0-1 [facility] Bilirubin [Mass/Vol] 0.40 mg/dL 0.20-1.00 [facility] Comment on above: For patients on eltr ombopag therapy, use of Dimension [place] TBIL is not recommended. Chloride [Moles/Vol] 108 mmol/L 98-107 [facility] Cholesterol [Mass/Vol] 183 mg/dL <200 [facility] Comment on above: <200 mg/dL Desirable 200-240 mg/dL Borderline >240 mg/dL High Risk Eosinophils/100 WBC (Bld) 6.0 % 0-5 [facility] Glucose [Mass/Vol] 165 mg/dL 74-106 [facility] Comment on above: Fasting Glucose resu lt greater than or equal to 126 mg/dL suggests DIABETES MELLITUS per A.D.A. criteria. Neutrophils (Bld) [#/Vol] 3.1 10*3/uL 2.0-7.7 [facility] Neutrophils/100 WBC (Bld) 43.9 % 47-70 [facility] Potassium [Moles/Vol] 3.0 mmol/L 3.5-5.1 [facility] Protein [Mass/Vol] 7.6 g/dL 6.4-8.2 [facility] Sodium [Moles/Vol] 142 mmol/L 136-145 [facility] Triglyceride [Mass/Vol] 191 mg/dL <199 [facility] Comment on above: The drugs N-Acetylcy steine and Metamizole may falsely depress this assay.Serum Triglycerides Reference Interval Normal <150 mg/dL Borderline high 150 - 199 mg/dL High 200 - 499 mg/dL Very High > or = 500 mg/dL WBC (Bld) [#/Vol] 7.2 10*3/uL 4.4-11.0 [facility] Blood erythrocytes count (nu mber/volume)Ordered By: Bhupinder Dominguez on 02-15-2023 RBC (Bld) [#/Vol] 4.65 10*6/uL 4.2-5.4 [facility] Blood hemoglobin measurement (mass/volume)Ordered By: Bhupinder Dominguez on 02-15-2023 Hemoglobin (Bld) [Mass/Vol] 13.9 g/dL 12.0-15.0 [facility] Blood lymphocytes/100 leukoc ytesOrdered By: Bhupinder Dominguez on 02-15-2023 Lymphocytes/100 WBC (Bld) 41.3 % 19-41 [facility] Blood monocytes/100 leukocyt esOrdered By: Bhupinder Dominguez on 02-15-2023 Monocytes/100 WBC (Bld) 7.3 % 0-10 [facility] Blood platelet mean volumeOr dered By: Bhupinder Dominguez on 02-15-2023 Platelet mean volume (Bld) [Entitic vol] 11.3 fL 6.2-12.0 [facility] Determination of erythrocyte mean corpuscular volume (MCV)Ordered By: Bhupinder Dominguez on 02-15-2023 MCV (RBC) [Entitic vol] 91.4 fL 81-99 [facility] Hematocrit Auto (Bld) [Volum e fraction]Ordered By: Bhupinder Dominguez on 02-15-2023 Hematocrit (Bld) [Volume fraction] 42.5 % 37-47 [facility] - Chemistry and C hemistry - challengeOrdered By: Bhupinder Dominguez on 02-15-2023 ALP [Catalytic activity/Vol] 128 U/L 45-117 [facility] ALT [Catalytic activity/Vol] 44 U/L 13-56 [facility] CO2 [Moles/Vol] 26.0 mmol/L 21.0-32.0 [facility] Globulin (S) [Mass/Vol] 3.9 g/dL 2.2-4.2 [facility] Urea nitrogen/Creatinine [Mass ratio] 17.6 mg/mg 10-20 [facility] - Hematology and Cell countsOrdered By: Bhupinder Dominguez on 02-15-2023 Erythrocyte distribution width (RBC) [Entitic vol] 41.6 fL 35.1-43.9 [facility] Erythrocyte distribution width (RBC) [Ratio] 12.6 % 11.6-14.6 [facility] Immature granulocytes/100 WBC (Bld) 0.100 % 0.0-0.9 [facility] Comment on above: IG% - Immature Granu locytes (promyelocytes, myelocytes and metamyelocytes) > 1% indicates that a LEFT SHIFT is Present. MCH (RBC) [Entitic mass] 29.9 pg 27.0-32.0 [facility] Nucleated RBC/100 WBC (Bld) [Ratio] 0 % 0-5 [facility] MCHC Auto (RBC) [Mass/Vol]Or dered By: Bhupinder Dominguez on 02-15-2023 MCHC (RBC) [Mass/Vol] 32.7 g/dL 32-36 [facility] No Panel InformationOrdered By: Bhupinder Dominguez on 02-15-2023 Estimated GFR (MDRD) Amer 65 mL/min >60 [facility] Comment on above: GFR Calc Estimated GFR (MDRD) Non-Af Amer 54 mL/min >60 [facility] Comment on above: Non- GFR Calc Thyroid Stimulating Hormone (TSH) 1.24 uIU/mL 0.358-3.74 [facility] Platelets bldOrdered By: Zachariah Dominguez on 02-15-2023 Platelets (Bld) [#/Vol] 336 10*3/uL 150-450 [facility] Serum or plasma albumin radha urement (mass/volume)Ordered By: Bhupinder Dominguez on 02-15-2023 Albumin [Mass/Vol] 3.7 g/dL 3.2-5.0 [facility] Serum or plasma albumin/glob ulin mass ratioOrdered By: Bhupinder Dominguez on 02-15-2023 Albumin/Globulin [Mass ratio] 0.9 {ratio} 0.9-2.4 [facility] Serum or plasma calcium radha urement (mass/volume)Ordered By: Bhuipnder Dominguez on 02-15-2023 Calcium [Mass/Vol] 9.5 mg/dL 8.5-10.1 [facility] Serum or plasma cholesterol in HDL measurement (mass/volume)Ordered By: Bhupinder Dominguez on 02-15-2023 Cholesterol in HDL [Mass/Vol] 68 mg/dL >40 [facility] Comment on above: The drugs N-Acetylcy steine and Metamizole may falsely depress this assay. Reference Range HDL <40 mg/dL Low HDL Cholesterol HDL >or= 60 mg/dL High HDL Cholesterol Serum or plasma cholesterol in VLDL measurement (mass/volume)Ordered By: Bhupinder Dominguez on 02-15-2023 Cholesterol in VLDL [Mass/Vol] 38 mg/dL 5-40 [facility] Serum or plasma creatinine m easurement (mass/volume)Ordered By: Bhupinder Dominguez on 02-15-2023 Creatinine [Mass/Vol] 1.08 mg/dL 0.55-1.02 [facility] Comment on above: The validity of the calculated GFR & GFRAA in patients over 70 years has not been determined. Clinical correlation is essential. Serum or plasma low density lipoprotein (LDL) cholesterol measurement (mass/volume)Ordered By: Bhupinder Dominguez on 02-15-2023 Cholesterol in LDL [Mass/Vol] 77 mg/dL 0-130 [facility] Serum or plasma urea nitroge n measurement (mass/volume)Ordered By: Bhupinder Dominguez on 02-15-2023 Urea nitrogen [Mass/Vol] 19 mg/dL 7-18 [facility] Thin prep Papanicolaou smear with manual screeningOrdered By: Bhupinder Dominguez on 02-15-2023 Thin prep Papanicolaou smear with manual screening 33 U/L 15-37 [facility] Thin prep Papanicolaou smear with manual screening 8 5-15 [facility] CLAUDIA SCREENINGon 05-11-2022 [facility] Absolute lymphocyte counton 01-26-2022 Lymphocytes Auto (Unsp spec) [#/Vol] 2.37 10*3/uL 0.83-4.51 [facility] Work Phone: Basophil percentageon -- 2021 Basophils/100 WBC (Bld) 1.4 % 0-1 [facility] Work Phone: Bilirubin [Mass/Vol] 0.50 mg/dL 0.20-1.00 [facility] Work Phone: Comment on above: For patients on eltr ombopag therapy, use of Dimension [place] TBIL is not recommended. Chloride [Moles/Vol] 107 mmol/L 98-107 [facility] Work Phone: Cholesterol [Mass/Vol] 175 mg/dL <200 [facility] Work Phone: Comment on above: <200 mg/dL Desirable 200-240 mg/dL Borderline >240 mg/dL High Risk Eosinophils/100 WBC (Bld) 6.1 % 0-5 [facility] Work Phone: Glucose [Mass/Vol] 114 mg/dL 74-106 [facility] Work Phone: Comment on above: Fasting Glucose resu lt from 100 to 125 mg/dL suggests IMPAIRED HOMEOSTASIS per A.D.A. criteria. Neutrophils (Bld) [#/Vol] 2.7 10*3/uL 2.0-7.7 [facility] Work Phone: Neutrophils/100 WBC (Bld) 46.1 % 47-70 [facility] Work Phone: Potassium [Moles/Vol] 3.6 mmol/L 3.5-5.1 [facility] Work Phone: Protein [Mass/Vol] 7.4 g/dL 6.4-8.2 [facility] Work Phone: Sodium [Moles/Vol] 140 mmol/L 136-145 [facility] Work Phone: Triglyceride [Mass/Vol] 88 mg/dL <199 [facility] Work Phone: Comment on above: The drugs N-Acetylcy steine and Metamizole may falsely depress this assay.Serum Triglycerides Reference Interval Normal <150 mg/dL Borderline high 150 - 199 mg/dL High 200 - 499 mg/dL Very High > or = 500 mg/dL WBC (Bld) [#/Vol] 5.9 10*3/uL 4.4-11.0 [facility] Work Phone: Blood erythrocytes count (nu mber/volume)on 01-26-2022 RBC (Bld) [#/Vol] 4.65 10*6/uL 4.2-5.4 [facility] Work Phone: Blood hemoglobin measurement (mass/volume)on 01-26-2022 Hemoglobin (Bld) [Mass/Vol] 14.0 g/dL 12.0-15.0 [facility] Work Phone: Blood lymphocytes/100 leukoc yteson 01-26-2022 Lymphocytes/100 WBC (Bld) 40.0 % 19-41 [facility] Work Phone: Blood monocytes/100 leukocyt eson 01-26-2022 Monocytes/100 WBC (Bld) 6.4 % 0-10 [facility] Work Phone: Blood platelet mean volumeon 01-26-2022 Platelet mean volume (Bld) [Entitic vol] 10.9 fL 6.2-12.0 [facility] Work Phone: Determination of erythrocyte mean corpuscular volume (MCV)on 01-26-2022 MCV (RBC) [Entitic vol] 88.2 fL 81-99 [facility] Work Phone: Hematocrit Auto (Bld) [Volum e fraction]on 01-26-2022 Hematocrit (Bld) [Volume fraction] 41.0 % 37-47 [facility] Work Phone: Laboratory - Chemistry and C hemistry - challengeon 01-26-2022 ALP [Catalytic activity/Vol] 122 U/L 45-117 [facility] Work Phone: ALT [Catalytic activity/Vol] 36 U/L 13-56 [facility] Work Phone: CO2 [Moles/Vol] 27.0 mmol/L 21.0-32.0 [facility] Work Phone: Globulin (S) [Mass/Vol] 3.6 g/dL 2.2-4.2 [facility] Work Phone: Urea nitrogen/Creatinine [Mass ratio] 21.1 mg/mg 10-20 [facility] Work Phone: Laboratory - Hematology and Cell countson 01-26-2022 Erythrocyte distribution width (RBC) [Entitic vol] 40.4 fL 35.1-43.9 [facility] Work Phone: Erythrocyte distribution width (RBC) [Ratio] 12.5 % 11.6-14.6 [facility] Work Phone: Immature granulocytes/100 WBC (Bld) 0.000 % 0.0-0.9 [facility] Work Phone: Comment on above: IG% - Immature Granu locytes (promyelocytes, myelocytes and metamyelocytes) > 1% indicates that a LEFT SHIFT is Present. MCH (RBC) [Entitic mass] 30.1 pg 27.0-32.0 [facility] Work Phone: Nucleated RBC/100 WBC (Bld) [Ratio] 0 % 0-5 [facility] Work Phone: MCHC Auto (RBC) [Mass/Vol]on 01-26-2022 MCHC (RBC) [Mass/Vol] 34.1 g/dL 32-36 [facility] Work Phone: No Panel Informationon 01-26 Estimated GFR (MDRD) Amer 91 mL/min >60 [facility] Work Phone: Comment on above: GFR Calc Estimated GFR (MDRD) Non-Af Amer 75 mL/min >60 [facility] Work Phone: Comment on above: Non- GFR Calc Platelets bldon 01-26-2022 Platelets (Bld) [#/Vol] 312 10*3/uL 150-450 [facility] Work Phone: Serum or plasma albumin radha urement (mass/volume)on 01-26-2022 Albumin [Mass/Vol] 3.8 g/dL 3.2-5.0 [facility] Work Phone: Serum or plasma albumin/glob ulin mass ratioon 01-26-2022 Albumin/Globulin [Mass ratio] 1.1 {ratio} 0.9-2.4 [facility] Work Phone: Serum or plasma calcium radha urement (mass/volume)on 01-26-2022 Calcium [Mass/Vol] 9.3 mg/dL 8.5-10.1 [facility] Work Phone: Serum or plasma cholesterol in HDL measurement (mass/volume)on 01-26-2022 Cholesterol in HDL [Mass/Vol] 83 mg/dL >40 [facility] Work Phone: Comment on above: The drugs N-Acetylcy steine and Metamizole may falsely depress this assay. Reference Range HDL <40 mg/dL Low HDL Cholesterol HDL >or= 60 mg/dL High HDL Cholesterol Serum or plasma cholesterol in VLDL measurement (mass/volume)on 01-26-2022 Cholesterol in VLDL [Mass/Vol] 18 mg/dL 5-40 [facility] Work Phone: Serum or plasma creatinine m easurement (mass/volume)on 01-26-2022 Creatinine [Mass/Vol] 0.80 mg/dL 0.55-1.02 [facility] Work Phone: Comment on above: The validity of the calculated GFR & GFRAA in patients over 70 years has not been determined. Clinical correlation is essential. Serum or plasma low density lipoprotein (LDL) cholesterol measurement (mass/volume)on 01-26-2022 Cholesterol in LDL [Mass/Vol] 74 mg/dL 0-130 [facility] Work Phone: Serum or plasma urea nitroge n measurement (mass/volume)on 01-26-2022 Urea nitrogen [Mass/Vol] 17 mg/dL 7-18 [facility] Work Phone: Thin prep Papanicolaou smear with manual screeningon 01-26-2022 Thin prep Papanicolaou smear with manual screening 30 U/L 15-37 [facility] Work Phone: Thin prep Papanicolaou smear with manual screening 6 5-15 [facility] Work Phone: Comprehensive Panelon 2019 Albumin [Mass/Vol] 4.0 g/dL Normal 3.9-4.9 [facility] Comment on above: Performed By: #### L [id number] #### [facility] [address] [place] [address] ALP [Catalytic activity/Vol] 104 U/L Normal 34-123 [facility] Comment on above: Performed By: #### L [id number] #### [facility] [address] [place] [address] ALT-SGPT Blood 32 U/L Normal 7-38 [facility] Comment on above: Performed By: #### L LP14 #### [facility] [address] [place] [address] Anion gap [Moles/Vol] 10 mmol/L Normal 9-18 [facility] Comment on above: Performed By: #### L LP14 #### [facility] [address] [place] [address] AST-SGOT Blood 32 U/L Normal 13-35 [facility] Comment on above: Performed By: #### L [id number] #### [facility] [address] [place] [address] Bilirubin Ql (U) 0.3 mg/dL Normal 0.2-1.3 [facility] Comment on above: Performed By: #### L LP14 #### [facility] [address] [place] [address] Calcium [Mass/Vol] 9.6 mg/dL Normal 8.5-10.2 [facility] Comment on above: Performed By: #### L LP14 #### [facility] [address] [place], [place] [address] Chloride [Moles/Vol] 102 mmol/L Normal 97-105 [facility] Comment on above: Performed By: #### L LP14 #### [facility] [address] [place], [place] [address] CO2 Blood 29 mmol/L Normal 22-30 [facility] Comment on above: Performed By: #### L LP14 #### [facility] [address] [place], [place] [address] Creatinine [Mass/Vol] 0.80 mg/dL Normal 0.58-0.96 [facility] Comment on above: Performed By: #### L LP14 #### [facility] [address] [place], [place] [address] Glucose [Mass/Vol] 130 mg/dL High 74-99 [facility] Comment on above: Result Comment: The [place] Diabetes [employer] (ADA) provides guidance for cutoff values for fasting glucose and random glucose. The ADA defines fasting as no caloric intake for at least 8 hours.Fasting plasma glucose results between 100 to 125 mg/dL indicate increased risk for diabetes (prediabetes). Fasting plasma glucose results greater than or equal to 126 mg/dL meet the criteria for diagnosis of diabetes. In the absence of unequivocal hyperglycemia, results should be confirmed by repeat testing. In a patient with classic symptoms of hyperglycemia or hyperglycemic crisis, random plasma glucose results greater than or equal to 200 mg/dL meet the criteria for diagnosis of diabetes. Reference: Standards of Medical Care in Diabetes 2016; [place] [employer] Association. Diabetes Care. 2016;39(Suppl 1). Performed By: #### L LP14 #### [facility] [address] [place], [place] [address] Potassium [Moles/Vol] 4.2 mmol/L Normal 3.7-5.1 [facility] Comment on above: Performed By: #### L LP14 #### [facility] [address] [place], [place] [address] Protein [Mass/Vol] 6.8 g/dL Normal 6.3-8.0 [facility] Comment on above: Performed By: #### L LP14 #### [facility] [address] [place] [address] Sodium [Moles/Vol] 141 mmol/L Normal 136-144 [facility] Comment on above: Performed By: #### L LP14 #### [facility] [address] [place] [address] Urea nitrogen [Mass/Vol] 15 mg/dL Normal 7-21 [facility] Comment on above: Performed By: #### L LP14 #### [facility] [address] [place] [address] Hemogram/Diffon 03-09-2020 Abs. Baso 0.05 thou/cmm Normal 0.00-0.08 [facility] Comment on above: Performed By: #### L CBCD #### [facility] [address] [place] [address] Abs. [place] 0.54 thou/cmm Normal 0.20-1.00 [facility] Comment on above: Performed By: #### L CBCD #### [facility] [address] [place] [address] Abs. Neut (ANC) 2.86 thou/cmm Low 3.00-5.67 [facility] Comment on above: Performed By: #### L CBCD #### [place] [address] Basophils/100 WBC (Bld) 0.8 % Normal [facility] Comment on above: Performed By: #### L CBCD #### [facility] [address] [place] [address] Eosinophils (Bld) [#/Vol] 0.42 thou/cmm High 0.00-0.41 [facility] Comment on above: Performed By: #### L CBCD #### [facility] [address] [place] [address] Eosinophils/100 WBC (Bld) 6.7 % Normal [facility] Comment on above: Performed By: #### L CBCD #### [place] [address] Erythrocyte distribution width (RBC) [Ratio] 11.8 % Normal 11.5-15.9 [facility] Comment on above: Performed By: #### L CBCD #### [facility] [address] [place] [address] Hematocrit (Bld) [Volume fraction] 40.3 % Normal 37.0-47.0 [facility] Comment on above: Performed By: #### L CBCD #### [facility] [address] [place] [address] Hemoglobin (Bld) [Mass/Vol] 13.3 g/dL Normal 12.0-16.0 [facility] Comment on above: Performed By: #### L CBCD #### [place] [address] Lymphocytes (Bld) [#/Vol] 2.43 thou/cmm Normal 1.50-3.65 [facility] Comment on above: Performed By: #### L CBCD #### [place] [address] Lymphocytes/100 WBC (Bld) 38.6 % Normal [facility] Comment on above: Performed By: #### L CBCD #### [place] [address] MCH (RBC) [Entitic mass] 29.8 pg Normal 27.0-31.0 [facility] Comment on above: Performed By: #### L CBCD #### [place] [address] MCHC (RBC) [Mass/Vol] 33.0 % Normal 32.0-36.0 [facility] Comment on above: Performed By: #### L CBCD #### [facility] [address] [place] [address] MCV (RBC) [Entitic vol] 90.2 fL Normal 81.0-99.0 [facility] Comment on above: Performed By: #### L CBCD #### [address] [address] Monocytes/100 WBC (Bld) 8.6 % Normal [facility] Comment on above: Performed By: #### L CBCD #### [facility] [address] [place], [place] [address] Platelet mean volume (Bld) [Entitic vol] 9.9 fL Normal 7.1-10.5 [facility] Comment on above: Performed By: #### L CBCD #### [facility] [address] [place], [place] [address] Platelets (Bld) [#/Vol] 292 thou/cmm Normal 150-400 [facility] Comment on above: Performed By: #### L CBCD #### [facility] [address] [place] [address] RBC (Bld) [#/Vol] 4.47 mil/cmm Normal 4.20-5.40 [facility] Comment on above: Performed By: #### L CBCD #### [place] [address] Seg Neutrophil 45.3 % Normal [facility] Comment on above: Performed By: #### L CBCD #### [facility] [address] [place], [place] [address] WBC (Bld) [#/Vol] 6.3 thou/cmm Normal 4.8-10.5 [facility] Comment on above: Performed By: #### L CBCD #### [place] [address] Lipid Profile, [facility] 03-09 Cholesterol [Mass/Vol] 168 mg/dL Normal 0-199 [facility] Comment on above: Result Comment: Tota l Cholesterol < 200 mg/dL, Desirable Total Cholesterol 200 to 239 mg/dL, Borderline high Total Cholesterol > 239 mg/dL, High Performed By: #### L LPF #### [facility] [address] [place] [address] Cholesterol in HDL [Mass/Vol] 74 mg/dL Normal [facility] Comment on above: Result Comment: Refe rence Range: HDL Cholesterol 40- 59 mg/dL, Acceptable HDL Cholesterol >59 mg/dL, High; Negative risk factor for coronary heart disease HDL Cholesterol <40 mg/dL, Low; Positive risk factor for coronary heart disease Performed By: #### L LPF #### [facility] [address] [place] [address] Cholesterol in LDL [Mass/Vol] 74 mg/dL Normal 0-99 [facility] Comment on above: Result Comment: LDL Cholesterol < 100 mg/dL, Optimal LDL Cholesterol 100 to 129 mg/dL, Near optimal/above optimal LDL Cholesterol 130 to 159 mg/dL, Borderline high LDL Cholesterol 160 to 189 mg/dL, High LDL Cholesterol > 189 mg/dL, Very high Secondary prevention optimal LDL Cholesterol levels are recommended to be < 70 mg/dL Performed By: #### L LPF #### [facility] [address] [place] [address] Cholesterol in LDL/Cholesterol in HDL [Mass ratio] 1.00 Normal 0.00-2.53 [facility] Comment on above: Performed By: #### L LPF #### [place] [address] Cholesterol.total/Nay sterol in HDL [Mass ratio] 2.27 {ratio} Normal 0.00-5.09 [facility] Comment on above: Performed By: #### L LPF #### [facility] [address] [place] [address] Non-HDL Cholesterol 94 mg/dL Normal 0-129 [facility] Comment on above: Result Comment: Non HDL Cholesterol < 130 mg/dL, Optimal Non HDL Cholesterol 130 to 159 mg/dL, Near optimal/above optimal Non HDL Cholesterol 160 to 189 mg/dL, Borderline high Non HDL Cholesterol 190 to 219 mg/dL, High Non HDL Cholesterol > 219 mg/dL, Very high Secondary prevention optimal non HDL Cholesterol levels are recommended to be < 100 mg/dL Performed By: #### L LPF #### [facility] [address] [place] [address] Triglyceride Blood 102 mg/dL Normal 0-149 [facility] Comment on above: Result Comment: Trig lycerides < 150 mg/dL, Normal Triglycerides 150 to 199 mg/dL, Borderline high Triglycerides 200 to 499 mg/dL, High Triglycerides > 499 mg/dL, Very high Performed By: #### L LPF #### [facility] [address] [place] [address] VLDL Cholesterol 20 mg/dL Normal 0-29 [facility] Comment on above: Performed By: #### L LPF #### [facility] [address] [place] [address] FASTING TIME 10 Hrs Normal [facility] Comment on above: Performed By: #### L LPF #### [facility] [address] [place] [id number] MDRD eGFRon 03-09-2020 GFR/1.73 sq M predicted among non-blacks MDRD (S/P/Bld) [Vol rate/Area] mL/min/{1.73_m2} Normal >60mL/min/1.73 m2 [facility] Comment on above: Result Comment: If t he patient is , multiply the result by 1.210. Performed By: #### L GFR #### [place] [address] TSHon 03-09-2020 TSH Qn 0.374 uIU/mL Normal 0.270-4.200 [facility] Comment on above: Result Comment: Preg ashia: 1st trimester:(9-12 weeks):0.180-2.900 uIU/mL 2nd trimester: 0.110-3.980 uIU/mL 3rd trimester: 0.480-4.710 uIU/mL Patients taking a biotin dose of up to 5 mg/day should refrain from taking biotin for 4 hours prior to sample collection. Patients taking a biotin dose of 5 to 10 mg/day should refrain from taking biotin for 8 hours prior to sample collection. Patients taking a biotin dose > 10 mg/day should consult with their physician or the laboratory prior to having a sample taken. Clinicians should consider biotin interference as a source of error, when clinically suspicious of the laboratory result. Performed By: #### L TSH #### [facility] [address] [place] [id number] Vital Signs Date Time Vital Sign Value Performing Clinician Florin messer 02-15-2023 16:06-0400 Body height 151.77 cm [facility] 02-15-2023 16:06-0400 Body mass index (BMI) [Ratio] 38.7 kg/m2 [facility] 02-15-2023 16:06-0400 Body temperature 97.3 [degF] [facility] 02-15-2023 16:06-0400 Body weight 89.35 kg [facility] 02-15-2023 16:06-0400 Diastolic blood pressure 70 mm[Hg] [facility] 02-15-2023 16:06-0400 Heart rate 93 /min [facility] 02-15-2023 16:06-0400 Respiratory rate 18 /min [facility] 02-15-2023 16:06-0400 SaO2% (BldA) [Mass fraction] 94 % [facility] 02-15-2023 16:06-0400 Systolic blood pressure 140 mm[Hg] [facility] 01-26-2022 15:05-0400 Body height 151.77 cm [facility] Work Phone: 01-26-2022 15:05-0400 Body mass index (BMI) [Ratio] 36.6 kg/m2 [facility] Work Phone: 01-26-2022 15:05-0400 Body temperature 97.9 [degF] [facility] Work Phone: 01-26-2022 15:05-0400 Body weight 84.36 kg [facility] Work Phone: 01-26-2022 15:05-0400 Diastolic blood pressure 80 mm[Hg] [facility] Work Phone: 01-26-2022 15:05-0400 Heart rate 73 /min [facility] Work Phone: 01-26-2022 15:05-0400 Respiratory rate 20 /min [facility] Work Phone: 01-26-2022 15:05-0400 SaO2% (BldA) [Mass fraction] 94 % [facility] Work Phone: 01-26-2022 15:05-0400 Systolic blood pressure 176 mm[Hg] [facility] Work Phone: Encounters Encounter Date Encounter Type Care Provider Facility Start: 06-12-2024 ambulatory BHUPINDER DOMINGUEZ Facil ity:[facility] Start: 06-12-2024 End: 06-12-2024 Subsequent hospital visit by physician Screen/Diagnostic Mammo [facility] Work Phone: Mammography Comment on above: Encounter for screen ing mammogram for malignant neoplasm of breast [Z12.31] Start: 03-07-2024 End: 03-07-2024 ambulatory Bhupinder Dominguez NP Facility:[facility] Start: 05-04-2023 End: 05-04-2023 ambulatory VEL RITTER Facility:[facility] Start: 05-04-2023 End: 05-04-2023 Patient encounter procedure Vel Ritter MD Work Phone: Orthopaedics Comment on above: Achilles tendinitis of left lower extremity (Primary Dx) Start: 04-20-2023 End: 04-20-2023 ambulatory VEL RITTER Facility:[facility] Start: 04-20-2023 End: 04-20-2023 Patient encounter procedure Vel Ritter MD Work Phone: Orthopaedics Comment on above: Achilles tendinitis of left lower extremity (Primary Dx) Start: 04-20-2023 End: 04-20-2023 Subsequent hospital visit by physician [facility] Work Phone: Radiology Comment on above: Pain [R52] Start: 02-15-2023 End: 02-15-2023 ambulatory [facility] Work Phone: Start: 02-15-2023 End: 02-15-2023 Patient encounter procedure [facility], Specimen Work Phone: Start: 05-11-2022 Documentation procedure Mammog tiffanie Coordinator [facility] Start: 05-11-2022 Letter encounter Mammography Coordinator [facility] Start: 05-11-2022 End: 05-11-2022 Subsequent hospital visit by physician Screen/Diagnostic Mammo [facility] Work Phone: Mammography Comment on above: Encounter for screen ing mammogram for malignant neoplasm of breast [Z12.31] Start: 01-26-2022 End: 01-26-2022 Patient encounter procedure [facility], Specimen Start: 03-09-2020 Patient encounter status [facility] Start: 02-07-2017 End: 02-08-2017 Ambulatory BHUPINDER DOMINGUEZ [facility] Procedures Date Procedure Procedure Detail Performing Clinician Start: 06-12-2024 Screening digital br east tomosynthesis bi Bhupinder Dominguez LACE SEWER.LBD TEACHER Work Phone: Start: 04-20-2023 Radex ankle complete minimum 3 views Andreas Correia PA-C Work Phone: Start: 05-11-2022 End: 05-11-2022 Screening mammography bi 2-view breast inc cad Bhupinder Dominguez LACE SEWER.LBD TEACHER Work Phone: Start: 03-09-2020 Lipid 1996 panel - S gabriel or Plasma Vel Ritter MD Work Phone: Plan of Treatment Date Care Activity Detail Author Start: 04-23-2029 Urine microalbumin profile DTaP,Tdap,Td Vaccine (3 - Td or Tdap) [facility] Start: 2029 RSV Vaccine (1 - 1-dose 75+ series) RSV Vaccine (1 - 1-dose 75+ series) [facility] Start: 06-12-2025 Screening for malignant neoplasm of breast Mammogram Screening [facility] Start: 03-09-2025 Lipid 1996 panel - Serum or Plasma Lipid Screening [facility] Start: 03-09-2025 Lipid panel Lipid Screening [facility] Start: 03-09-2025 LIPID SCREEN LIPID SCREEN [facility] Start: 03-23-2024 Covid-19 Vaccine ( season) Covid-19 Vaccine () [facility] Start: 03-23-2024 Covid-19 Vaccine ( season) Covid-19 Vaccine ( season) [facility] Start: 03-23-2024 Influenza vaccination Influenza Vaccine (#1) [facility] Start: 07-23-2023 Advance Directive Discussion Advance Directive Discussion [facility] Start: 05-15-2023 Mammography Mammogram Screening [facility] Start: 05-15-2023 Screening for malignant neoplasm of breast Mammogram Screening [facility] Start: 05-11-2023 Mammography MAMMOGRAM [facility] Start: 03-23-2023 Influenza vaccination Influenza Vaccine (#[facility]) [facility] Start: 03-09-2023 DIABETES SCREEN DIABETES SCREEN [facility] Start: 03-09-2023 Diabetes Screening Diabetes Screening [facility] Start: 07-23-2022 Advance Directive Discussion Advance Directive Discussion [facility] Start: 07-23-2022 Depression Assessment Depression Assessment [facility] Start: 03-23-2022 Influenza vaccination INFLUENZA (#1) [facility] Start: 01-26-2022 Vitamin D, 1,25-dihydroxy measurement [facility] Work Phone: Start: 07-23-2021 ADVANCE DIRECTIVE DISCUSSION ADVANCE DIRECTIVE DISCUSSION [facility] Start: 07-23-2021 DEPRESSION ASSESSMENT DEPRESSION ASSESSMENT [facility] Start: 2019 Pneumococcal Vaccine: 65+ (1 - PCV) Pneumococcal Vaccine: 65+ (1 - PCV) [facility] Start: 2019 Pneumococcal Vaccine: 65+ (1 of 1 - PCV) Pneumococcal Vaccine: 65+ (1 of 1 - PCV) [facility] Start: 2019 PNEUMOCOCCAL: 65+ (1 - PCV) PNEUMOCOCCAL: 65+ (1 - PCV) [facility] Start: 2014 RSV Vaccine (1 - 1-dose 60+ series) RSV Vaccine (1 - 1-dose 60+ series) [facility] Start: 02-18-2004 SHINGRIX VACCINE (1 of 2) SHINGRIX VACCINE (1 of 2) [facility] Start: 1999 COLOGUARD (FIT-DNA) COLOGUARD (FIT-DNA) [facility] Start: 1999 Colonoscopy COLONOSCOPY [facility] Start: 1999 COLORECTAL CANCER SCREENING COLORECTAL CANCER SCREENING [facility] Start: [address] COLONOGRAPHY [facility] Start: 1999 FECAL OCCULT BLOOD FECAL OCCULT BLOOD [facility] Start: 1999 Screening for malignant neoplasm of colon [facility] Start: 1999 SIGMOIDOSCOPY SIGMOIDOSCOPY [facility] Start: 1973 Urine microalbumin profile [facility] Start: 02-18-1972 ANNUAL PCP TEAM CHRONIC DISEASE VISIT ANNUAL PCP TEAM CHRONIC DISEASE VISIT [facility] Start: 02-18-1972 Anxiety Screening Anxiety Screening [facility] Start: 02-18-1972 BP CONTROLLED (<130/80) BP CONTROLLED (<130/80) [facility] Start: 02-18-1972 Depression Screening Depression Screening [facility] Start: 02-18-1972 HEPATITIS C SCREENING HEPATITIS C SCREENING [facility] Start: 02-18-1972 Hepatitis C screening Hepatitis C Screening [facility] Start: 1954 COVID-19 VACCINE (#1) COVID-19 VACCINE (#1) [facility] Vitamin D, 1,25-dihy droxy measurement [facility] Work Phone: Immunizations Immunization Date Immunization Notes Care Provider Opal cantor 08-07-2023 influenza virus vaccine, unspecified formulation Screen/Diagnostic Hosp Work Phone: [facility] 05-16-2022 influenza virus vaccine, unspecified formulation Vel Ritter MD Work Phone: [facility] 04-23-2019 tetanus toxoid, redu kike diphtheria toxoid, and acellular pertussis vaccine, adsorbed [facility] Payers Date Payer Category Payer Self-pay [id number] 2020 Unknown [id number] 2020 Unknown [id number] 2019 Medicare MEDICARE MEDICAR E A AND B [id number] 2019-Present [phone] [place] [address] Medicare [id number] 2019 Medicare [id number] Medicare [id number] Unknown [id number] Social History Date Type Detail Facility Start: 03-11-2020 Tobacco smoking stat [facility] Unknown if ever smoked [facility] Start: 1955 Sex Assigned At Female [facility] Start: 05-15-2011 [facility] End: 07-23-1992 History of tobacco use Current smoker [facility] End: 07-23-1992 History of tobacco use Cigarette Smoker [facility] Start: 05-15-2011 Tobacco use and exposure Smokeless tobacco non-user [facility] Start: 06-30-2020 Alcohol intake Current non-dr service line layer of alcohol (finding) [facility] Start: 1955 Sex Assigned At Not on file [facility] Start: 06-30-2020 End: 04-18-2023 History of Social function [facility] Start: 06-30-2020 End: 04-18-2023 Tobacco use panel [facility] National Score (1-100), lower number is lower risk 50 [facility] Clinical Notes 05-11-2022 to 06-12-2024 Artis Villalta, CT - 06/12/2024 12:40 PM Vel Sosa MD - 05/28/2023 12:38 PM Vel Sosa MD - 05/19/2023 7:59 AM Radha Li RT(R) - 04/20/2023 9:20 AM EDT Note Date & Type Note Facility 06-12-2024 History of Presen t illness Narrative Radiology Service Progress Note PATIENT NAME: Emmie Moss DATE OF SERVICE: June 12, 2024 TIME: 1:28 PM PATIENT IDENTITY VERIFICATION COMPLETED USING TWO (2) IDENTIFIERS: Name and Date of confirmed by patient verbally. FALL SCREENING: Has the patient had 2 falls in the last year or 1 fall with injury or currently using an Ambulatory Assistive Device (Walker, Cane, Wheelchair, Crutches, etc.)? No PATIENT GENDER DATA: Female. status: : No status: NO. PATIENT RELEVANT IMPLANT DATA REVIEWED: Yes PATIENT PRESENTS WITH AN IMPLANTABLE OR ATTACHED COMMUNITY RELATIONS LIAISON: No RADIOLOGY DEPARTMENT: Mammography PERIPHERAL IV DATA: Not applicable SIGNED BY: Simran PLASENCIA(R) June 12, 2024 1:28 PM documented in this encounter [facility] 06-12-2024 Note HNO ID: [id number] Author: ARTIS VILLALTA CT Service: Radiology Author Type: Technologist Type: Progress Notes Filed: 06/12/2024 13:28 Note Text: Radiology Service Progress Note PATIENT NAME: Emmie Moss DATE OF SERVICE: June 12, 2024 TIME: 1:28 PM PATIENT IDENTITY VERIFICATION COMPLETED USING TWO (2) IDENTIFIERS: Name and Date of confirmed by patient verbally. FALL SCREENING: Has the patient had 2 falls in the last year or 1 fall with injury or currently using an Ambulatory Assistive Device (Walker, Cane, Wheelchair, Crutches, etc.)? No PATIENT GENDER DATA: Female. status: : No status: NO. PATIENT RELEVANT IMPLANT DATA REVIEWED: Yes PATIENT PRESENTS WITH AN IMPLANTABLE OR ATTACHED COMMUNITY RELATIONS LIAISON: No RADIOLOGY DEPARTMENT: Mammography PERIPHERAL IV DATA: Not applicable SIGNED BY: Simran PLASENCIA(R) June 12, 2024 1:28 PM [facility] 05-28-2023 Note HNO ID: [id number] Author: Vel Ritter MD Service: ? Author Type: Physician Type: Progress Notes Filed: 05/28/2023 12:43 PM Note Text: REASON FOR VISIT / CHIEF COMPLAINT CHIEF COMPLAINT: Emmie Moss is a 68 year old female who presents today for follow up office visit. Patient presents with: Left Ankle - Follow Up: Achilles tendonitis HISTORY OF PRESENT ILLNESS (HPI) PAIN EVALUATION 05/04/2023 1308 Pain Level: 1 Pain Location: Heel-Left Description: -- pulling Duration Amount of Time: -- ongoing Frequency: Intermittent Intervention/Comfort measure: Positioning Here for follow-up of her left heel Achilles tendinitis. She feels things have improved to some degree. She has been using the heel lift and the performing the heel cord stretches as recommended at the time of her last visit Any new injury, since being seen last: No Is there any overall improvement in your condition? Yes, Does anything make it worse?: Yes, prolonged standing, walking on uneven surfaces Does anything make it better?: Yes, heel wedge, independent stretching exercises REVIEW OF SYMPTOMS: Integumentary: Any recent skin changes or rashes? No Neurologic: Any numbness or tingling in the LOCAL AREA? No Endocrine: Any diagnosis of diabetes? No Hematologic: Any recent bleeding episodes? No ALLERGIES ALLERGIES Allergen Reactions Iv Iodine [Contrast* Swelling PAST MEDICAL HISTORY PAST MEDICAL HISTORY Diagnosis Date Ott esophagus Depression with anxiety HTN (hypertension) Hypercholesterolemia Hypothyroid Menopause ovarian failure PAST SURGICAL HISTORY Procedure Laterality Date REDUCTION OF LARGE BREAST bilateral TONSILLECTOMY HX PHYSICAL EXAMINATION Vitals: There were no vitals taken for this visit. Body Habitus:no acute distress and alert and oriented Orientation: Normal: Oriented to person, place and time Psych: normal Sensation: sensation to light touch is grossly normal bilaterally Skin: Color, texture, turgor normal. No rashes or lesions Swelling: no swelling noted Stance: normal cervical posture, shoulder alignment, and no joint deformities or swelling noted Ortho Exam Left calcaneus and Achilles tendon less tender to palpation Passively dorsiflex her past neutral and flexion to 30 degrees Passive range of motion of the subtalar joint shows no significant limitations Thurman squeeze test negative Left leg neurovascularly intact Imaging : None today Proceedures : None today Assessment: Symptomatically improving left ankle Achilles tendinitis Plan: 1. Continue independent stretching exercises 2. Wean out of the heel lift as symptoms allow 3. Follow-up for repeat clinical evaluation. If she has a recurrence of her symptoms, consideration for an MRI to evaluate the integrity of the Achilles tendon will be considered Vel Ritter M.D. Department of Orthopaedic Surgery [facility] 05-28-2023 History of Presen t illness Narrative Images from the original note were not included. REASON FOR VISIT / CHIEF COMPLAINT CHIEF COMPLAINT: Emmie Moss is a 68 year old female who presents today for follow up office visit. Patient presents with: Left Ankle - Follow Up: Achilles tendonitis HISTORY OF PRESENT ILLNESS (HPI) PAIN EVALUATION 05/04/2023 1308 Pain Level: 1 Pain Location: Heel-Left Description: -- pulling Duration Amount of Time: -- ongoing Frequency: Intermittent Intervention/Comfort measure: Positioning Here for follow-up of her left heel Achilles tendinitis. She feels things have improved to some degree. She has been using the heel lift and the performing the heel cord stretches as recommended at the time of her last visit Any new injury, since being seen last: No Is there any overall improvement in your condition? Yes, Does anything make it worse?: Yes, prolonged standing, walking on uneven surfaces Does anything make it better?: Yes, heel wedge, independent stretching exercises REVIEW OF SYMPTOMS: Integumentary: Any recent skin changes or rashes? No Neurologic: Any numbness or tingling in the LOCAL AREA? No Endocrine: Any diagnosis of diabetes? No Hematologic: Any recent bleeding episodes? No ALLERGIES ALLERGIES Allergen Reactions Iv Iodine [Contrast* Swelling PAST MEDICAL HISTORY PAST MEDICAL HISTORY Diagnosis Date Ott esophagus Depression with anxiety HTN (hypertension) Hypercholesterolemia Hypothyroid Menopause ovarian failure PAST SURGICAL HISTORY Procedure Laterality Date REDUCTION OF LARGE BREAST bilateral TONSILLECTOMY HX PHYSICAL EXAMINATION Vitals: There were no vitals taken for this visit. Body Habitus:no acute distress and alert and oriented Orientation: Normal: Oriented to person, place and time Psych: normal Sensation: sensation to light touch is grossly normal bilaterally Skin: Color, texture, turgor normal. No rashes or lesions Swelling: no swelling noted Stance: normal cervical posture, shoulder alignment, and no joint deformities or swelling noted Ortho Exam Left calcaneus and Achilles tendon less tender to palpation Passively dorsiflex her past neutral and flexion to 30 degrees Passive range of motion of the subtalar joint shows no significant limitations Thurman squeeze test negative Left leg neurovascularly intact Imaging : None today Proceedures : None today Assessment: Symptomatically improving left ankle Achilles tendinitis Plan: 1. Continue independent stretching exercises 2. Wean out of the heel lift as symptoms allow 3. Follow-up for repeat clinical evaluation. If she has a recurrence of her symptoms, consideration for an MRI to evaluate the integrity of the Achilles tendon will be considered Vel Ritter M.D. Department of Orthopaedic Surgery [facility] documented in this encounter [facility] 05-19-2023 Note HNO ID: [id number] Author: Vel Ritter MD Service: ? Author Type: Physician Type: Progress Notes Filed: 05/19/2023 8:05 AM Note Text: DEPARTMENT OF ORTHOPAEDICS HISTORY OF PRESENT ILLNESS: This is a pleasant 68 year old female, who presents today with a chief complaint of left heel pain. She complains of sharp and aching pain about the posterior aspect of approximately 3 days duration. She reports she has had the pain in the past but became worse after power washing for 3 hours. This pain is intermittent. She denies trauma. She complains that the pain is 1/10 worst. She denies nocturnal pain. The pain is exacerbated by walking, managing stairs, and prolonged standing. Previous treatments have included Rx NSAIDs. She denies proximal radiation. She denies distal radiation. She denies numbness, tingling, or electric shocks. She denies popping, clicking, catching, locking, grinding, instability, buckling, or giving way. The patient's walking tolerance is moderate before resting. She reports swelling and/or warmth. PAST MEDICAL HISTORY Diagnosis Date Ott esophagus Depression with anxiety HTN (hypertension) Hypercholesterolemia Hypothyroid Menopause ovarian failure PAST SURGICAL HISTORY Procedure Laterality Date REDUCTION OF LARGE BREAST bilateral TONSILLECTOMY HX Current Outpatient Medications Medication Sig Dispense Refill naproxen (NAPROSYN) 500 mg tablet Take 1 tablet by mouth twice daily with meals. Take with food. 28 tablet 0 cholecalciferol, vitamin D3, (VITAMIN D3) 4,000 unit cap Take by mouth once daily. CYANOCOBALAMIN, VITAMIN B-12, (VITAMIN B-12 ORAL) Take by mouth once daily. ezetimibe 10 mg tab 10 mg, simvastatin 10 mg tab 10 mg Take by mouth once daily. LOSARTAN POTASSIUM (LOSARTAN ORAL) Take by mouth. sertraline 50 mg ORAL tablet Take 150 mg by mouth once daily. LEVOTHYROXINE SODIUM (SYNTHROID ORAL) Take by mouth. ATOMOXETINE HCL (STRATTERA ORAL) Take by mouth. No current facility-administered medications for this visit. ALLERGIES Allergen Reactions Iv Iodine [Contrast* Swelling FAMILY HISTORY Problem Relation Age of Onset Hypertension Father Cancer Father prostate, kidney Colon Cancer Maternal Grandmother Heart Paternal Grandmother Social History Tobacco Use Smoking status: Former Types: Cigarettes Quit date: 07/23/1992 Years since quittin.8 Smokeless tobacco: Never Substance Use Topics Alcohol use: No Drug use: No Occupation:homemaker Activity level: recreational, sport/activity: none REVIEW OF SYSTEMS: GENERAL: negative for malaise, significant weight loss, night sweats and fever HEENT: No changes in hearing or vision, no nose bleeds or other nasal problems., No trouble swallowing RESPIRATORY: Negative for cough, wheezing and shortness of breath CARDIOVASCULAR: Negative for chest pain, leg swelling, palpitations, orthopnea GI: Negative for abdominal discomfort, hematochezia, melena, hematemesis, change in bowel habits, diarrhea, constipation, nausea or vomiting. MUSCULOSKELETAL: See HPI. PSYCH: Negative for sleep disturbance, mood disorder and recent psychosocial stressors. HEMATOLOGY Negative for prolonged bleeding, bruising easily, and swollen nodes. ENDOCRINE: Negative for cold or heat intolerance, polyuria, polydipsia and goiter. NEURO: negative for lightheadedness, dizziness, tremor, gait imbalance, syncope and seizures. RADIOGRAPHS: XR ANKLE GENERAL 3V AP/LAT/OBL LEFT Narrative: * * *Final Report* * * DATE OF EXAM: Apr 20 2023 9:54AM [facility] 5298 - XR ANKLE 3V AP/LAT/OBL LT / PROCEDURE REASON: [id number] * * * * Physician Interpretation * * * * PROCEDURE: Left ankle INDICATION: Pain . TECHNIQUE: XR ANKLE 3V AP/LAT/OBL LT COMPARISON: 03/26/2020 FINDINGS: No acute fracture or dislocation. Ankle mortise is symmetric. No significant degenerative change. No evidence for joint effusion. Calcifications within the Achilles tendon and a prominent plantar calcaneal spur are again noted. Impression: IMPRESSION: No acute abnormality. Director Agricultural Services: [facility] Transcribe Date/Time: Apr 20 2023 1:56P Dictated by : BRANDI GRACE MD This examination was interpreted and the report reviewed and electronically signed by: BRANDI GRACE MD on Apr 20 2023 1:57PM EST OTHER STUDIES: Not applicable. PHYSICAL EXAM: There were no vitals taken for this visit. General: Appears stated age, obese, in no apparent distress. Psychiatric: Mood and affect appropriate. Alert and oriented x3. Musculoskeletal Exam: Gait and Station antalgic: left. LEFT FOOT AND ANKLE EXAM: Inspection: No evidence of eythema, warmth, bruising, abrasions, scars, swelling, atrophy or deformity about bilateral lower extremities. No evidence of surgical incisions. Range of Motion: Dorsiflexion/Plantarflexion 10-30 degrees. Decreased eversion, inversion, and hindfoot motio (more content not included)... [facility] 05-19-2023 History of Presen t illness Narrative Images from the original note were not included. DEPARTMENT OF ORTHOPAEDICS HISTORY OF PRESENT ILLNESS: This is a pleasant 68 year old female, who presents today with a chief complaint of left heel pain. She complains of sharp and aching pain about the posterior aspect of approximately 3 days duration. She reports she has had the pain in the past but became worse after power washing for 3 hours. This pain is intermittent. She denies trauma. She complains that the pain is 1/10 worst. She denies nocturnal pain. The pain is exacerbated by walking, managing stairs, and prolonged standing. Previous treatments have included Rx NSAIDs. She denies proximal radiation. She denies distal radiation. She denies numbness, tingling, or electric shocks. She denies popping, clicking, catching, locking, grinding, instability, buckling, or giving way. The patient's walking tolerance is moderate before resting. She reports swelling and/or warmth. PAST MEDICAL HISTORY Diagnosis Date Ott esophagus Depression with anxiety HTN (hypertension) Hypercholesterolemia Hypothyroid Menopause ovarian failure PAST SURGICAL HISTORY Procedure Laterality Date REDUCTION OF LARGE BREAST bilateral TONSILLECTOMY HX Current Outpatient Medications Medication Sig Dispense Refill naproxen (NAPROSYN) 500 mg tablet Take 1 tablet by mouth twice daily with meals. Take with food. 28 tablet 0 cholecalciferol, vitamin D3, (VITAMIN D3) 4,000 unit cap Take by mouth once daily. CYANOCOBALAMIN, VITAMIN B-12, (VITAMIN B-12 ORAL) Take by mouth once daily. ezetimibe 10 mg tab 10 mg, simvastatin 10 mg tab 10 mg Take by mouth once daily. LOSARTAN POTASSIUM (LOSARTAN ORAL) Take by mouth. sertraline 50 mg ORAL tablet Take 150 mg by mouth once daily. LEVOTHYROXINE SODIUM (SYNTHROID ORAL) Take by mouth. ATOMOXETINE HCL (STRATTERA ORAL) Take by mouth. No current facility-administered medications for this visit. ALLERGIES Allergen Reactions Iv Iodine [Contrast* Swelling FAMILY HISTORY Problem Relation Age of Onset Hypertension Father Cancer Father prostate, kidney Colon Cancer Maternal Grandmother Heart Paternal Grandmother Social History Tobacco Use Smoking status: Former Types: Cigarettes Quit date: 07/23/1992 Years since quittin.8 Smokeless tobacco: Never Substance Use Topics Alcohol use: No Drug use: No Occupation:homemaker Activity level: recreational, sport/activity: none REVIEW OF SYSTEMS: GENERAL: negative for malaise, significant weight loss, night sweats and fever HEENT: No changes in hearing or vision, no nose bleeds or other nasal problems., No trouble swallowing RESPIRATORY: Negative for cough, wheezing and shortness of breath CARDIOVASCULAR: Negative for chest pain, leg swelling, palpitations, orthopnea GI: Negative for abdominal discomfort, hematochezia, melena, hematemesis, change in bowel habits, diarrhea, constipation, nausea or vomiting. MUSCULOSKELETAL: See HPI. PSYCH: Negative for sleep disturbance, mood disorder and recent psychosocial stressors. HEMATOLOGY Negative for prolonged bleeding, bruising easily, and swollen nodes. ENDOCRINE: Negative for cold or heat intolerance, polyuria, polydipsia and goiter. NEURO: negative for lightheadedness, dizziness, tremor, gait imbalance, syncope and seizures. RADIOGRAPHS: XR ANKLE GENERAL 3V AP/LAT/OBL LEFT Narrative: * * *Final Report* * * DATE OF EXAM: Apr 20 2023 9:54AM [facility] 5298 - XR ANKLE 3V AP/LAT/OBL LT / PROCEDURE REASON: [id number] * * * * Physician Interpretation * * * * PROCEDURE: Left ankle INDICATION: Pain . TECHNIQUE: XR ANKLE 3V AP/LAT/OBL LT COMPARISON: 03/26/2020 FINDINGS: No acute fracture or dislocation. Ankle mortise is symmetric. No significant degenerative change. No evidence for joint effusion. Calcifications within the Achilles tendon and a prominent plantar calcaneal spur are again noted. Impression: IMPRESSION: No acute abnormality. Director Agricultural Services: [facility] Transcribe Date/Time: Apr 20 2023 1:56P Dictated by : BRANDI GRACE MD This examination was interpreted and the report reviewed and electronically signed by: BRANDI GRACE MD on Apr 20 2023 1:57PM EST OTHER STUDIES: Not applicable. PHYSICAL EXAM: There were no vitals taken for this visit. General: Appears stated age, obese, in no apparent distress. Psychiatric: Mood and affect appropriate. Alert and oriented x3. Musculoskeletal Exam: Gait and Station antalgic: left. LEFT FOOT & ANKLE EXAM: Inspection: No evidence of eythema, warmth, bruising, abrasions, scars, swelling, atrophy or deformity about bilateral lower extremities. No evidence of surgical incisions. Range of Motion: Dorsiflexion/Plantarflexion 10-30 degrees. Decreased eversion, inversion, and hindfoot motion. Palpation: Positive tenderness to palpation: Achilles tendon. Stability: Negative: Anterior drawer test, Talar tilt, Stress external rotation test, and Squeeze test. Negative Kinga's, calf tenderness or palpable cords. Bilateral lower extremities show equal motion of the hips and knees. Normal strength, tone, and stability of the remainder of both lower extremities distally. Neurologic Exam: Intact sensation and reflexes in both lower extremities. Vascular: 2+ pedal pulses of both lower extremities. PROCEDURE: Not applicable IMPRESSION: 1. left Achilles tendonitis. Overlay of calcific tendinitis. She is not showing any deficits along the Achilles tendon to suggest an acute tear. I recommended a trial of heel lifts and continuing her NSAIDs and local measures. We will reevaluate her in 2 weeks if symptoms persist. It is the case we may need to consider an MRI to rule out a possible interstitial or partial Achilles tendon tear PLAN: 1. Medication: Continue current medications. 2. Test(s)/Imaging/Referral(s): None. 3. Intervention: Heel lifts and gentle Achilles tendon stretching as instructed 4. Follow-up: Two weeks . Vel Rtiter MD I would like to thank you for the kind referral of . I appreciate the opportunity to be involved in her care. Please do not hesitate to call upon me if I may be of further assistance. documented in this encounter [facility] 04-20-2023 History of Presen t illness Narrative Radiology Service Progress Note PATIENT NAME: Emmie Moss DATE OF SERVICE: April 20, 2023 TIME: 9:43 AM PATIENT IDENTITY VERIFICATION COMPLETED USING TWO (2) IDENTIFIERS: Name and Date of confirmed by patient verbally. FALL SCREENING: Has the patient had 2 falls in the last year or 1 fall with injury or currently using an Ambulatory Assistive Device (Walker, Cane, Wheelchair, Crutches, etc.)? No PATIENT GENDER DATA: Female. status: : No status: NO. PATIENT RELEVANT IMPLANT DATA REVIEWED: Not Applicable RADIOLOGY DEPARTMENT: General X-ray: Exam(s) Completed: Lower Extremity X-Ray(s): Ankle, Left and Wt. Bearing PERIPHERAL IV DATA: Not applicable SIGNED BY: RT Rafita(R) April 20, 2023 9:43 AM documented in this encounter [facility] 05-11-2022 Miscellaneous Notes May 11, 2022 PID: [id number] Emmie Moss [address] [place] [address] Dear Ms. Moss, Your recent breast imaging exam on 05/11/2022 showed a possible finding that requires additional imaging studies for a complete evaluation. Most such findings are probably benign (not cancer). If you have a healthcare provider who ordered/prescribed your screening mammogram: Please call to schedule an appointment for your additional imaging (if you have not already done so). Additional Imaging [place] self [place]. If you DO NOT have a healthcare provider (ie you did not have an order/prescription for your screening mammogram): Please call to schedule an appointment for your additional imaging (if you have not already done so). [facility]onal [facility] This exam cannot be self scheduled [facility]. You must have an order/prescription from your physician when calling to schedule your appointment. If your order/prescription is not electronic, you must bring the hard copy with you on the day of your exam Your imaging studies and reports are kept on file at [facility] as part of your permanent medical record, and are available for your continuing care. Thank you for allowing us to help in meeting your health care needs. Sincerely, Dr. Rivera Interpreting Radiologist [facility] (Additional imaging) documented in this encounter [facility] 10-20-2022 History of Presen t illness Narrative Radiology Service Progress Note PATIENT NAME: Emmie Moss DATE OF SERVICE: May 11, 2022 TIME: 10:31 AM PATIENT IDENTITY VERIFICATION COMPLETED USING TWO (2) IDENTIFIERS: Name and Date of confirmed by patient verbally. FALL SCREENING: Has the patient had 2 falls in the last year or 1 fall with injury or currently using an Ambulatory Assistive Device (Walker, Cane, Wheelchair, Crutches, etc.)? No PATIENT GENDER DATA: Female. status: : No status: NO. PATIENT RELEVANT IMPLANT DATA REVIEWED: Not Applicable RADIOLOGY DEPARTMENT: Mammography PERIPHERAL IV DATA: Not applicable SIGNED BY: RT Trevor(Anam)(M) May 11, 2022 10:31 AM documented in this encounter [facility] Evaluation note Diagnosis Onset Date Wellness examination acute [facility] Work Phone: Evaluation note* Diagnosis Onset Date Resolution Status Hyperlipidemia LDL goal <130 acute Hypothyroidism acute Insomnia acute Hypertension chronic [facility] Work Phone: Evaluation note* Diagnosis Achilles tendinitis of left lower extremity- Primary Achilles bursitis or tendinitis [facility] Pain Generalized pain documented in this encounter [facility] for referral (narrative)* Diagnostic Procedure Only (Routine) - Closed Specialty Diagnoses / Procedures Referred By Nanci delaney Referred To Contact XR IMAGING Diagnoses Pain Procedures XR ANKLE GENERAL 3V AP/LAT/OBL LEFT RADEX ANKLE COMPLETE MINIMUM 3 VIEWS Andreas Correia PA-C [address] [place] [address] [place] [id number] Referral ID Status Reason Start Date Expiration Date V isits Requested Visits Authorized [id number] Closed Auto-Generate d Referral 04/18/2023 05/16/2024 1 1 [facility] for visit Narrative* Diagnostic Procedure Only (Routine) - Closed Specialty Diagnoses / Procedures Referred By Contac t Referred To Contact XR IMAGING Diagnoses Pain Procedures XR ANKLE GENERAL 3V AP/LAT/OBL LEFT RADEX ANKLE COMPLETE MINIMUM 3 VIEWS Andreas Correia PA-C [address] [place] [address] [place] [id number] Referral ID Status Reason Start Date Expiration Date V isits Requested Visits Authorized [id number] Closed Auto-Generate d Referral 04/18/2023 05/16/2024 1 1 [facility] Summary Purpose Family History No Family History Records Found Relationship Condition Age at Onset Recorded Date/[place] Not Specified Malignant neoplasm of prostate Unknown High blood cholesterol Unknown Cardiac disease Unknown Kidney disorder Unknown Psoriasis Unknown Malignant neoplasm Unknown Hypertension Unknown Parkinson's disease Unknown Disorder of thyroid Unknown Cerebrovascular accident (CVA) Unknown mother Malignant neoplasm of colon Unknown Advance Directives No Advanced Directives Records FoundNo Advanced Directives Records FoundNo Advanced Directives Records FoundNo Advanced Directives Records FoundNo Advanced Directives Records Found Chief Complaint and Reason for Visit Chief Complaint Annual wellness exam PE & labs Reason for Visit Wellness examination Chief Complaint medication refills Reason for Visit Hyperlipidemia LDL g oal <130 Hypothyroidism Insomnia Hypertension Additional Source Comments INFORMATION SOURCE (unrecogn ized section and content) DATE CREATED AUTHOR 01/16/2018 [facility] DATE CREATED AUTHOR AUTHOR'S ORGANIZ ATION 03/10/2020 [facility] DATE CREATED AUTHOR AUTHOR'S ORGANIZ ATION 05/29/2023 [facility] DATE CREATED AUTHOR AUTHOR'S ORGANIZ ATION 03/29/2024 [facility] DATE CREATED AUTHOR AUTHOR'S ORGANIZ ATION 06/15/2024 [facility] Goals (unrecognized section and content) Goals may be documented in a n alternate sectionGoals may be documented in an alternate section Source Comments (unrecognize d section and content) In the event this informatio n is protected by the Federal Confidentiality of Alcohol and Drug Abuse Patient Records regulations: The Federal rules restrict any use of the information to criminally investigate or prosecute any alcohol or drug abuse patient.[facility] the event this information is protected by the Federal Confidentiality of Alcohol and Drug Abuse Patient Records regulations: The Federal rules restrict any use of the information to criminally investigate or prosecute any alcohol or drug abuse patient.[facility] the event this information is protected by the Federal Confidentiality of Alcohol and Drug Abuse Patient Records regulations: The Federal rules restrict any use of the information to criminally investigate or prosecute any alcohol or drug abuse patient.[facility] the event this information is protected by the Federal Confidentiality of Alcohol and Drug Abuse Patient Records regulations: The Federal rules restrict any use of the information to criminally investigate or prosecute any alcohol or drug abuse patient.[facility] the event this information is protected by the Federal Confidentiality of Alcohol and Drug Abuse Patient Records regulations: The Federal rules restrict any use of the information to criminally investigate or prosecute any alcohol or drug abuse patient.[facility] the event this information is protected by the Federal Confidentiality of Alcohol and Drug Abuse Patient Records regulations: The Federal rules restrict any use of the information to criminally investigate or prosecute any alcohol or drug abuse patient.[facility] Care Teams (unrecognized sec tion and content) [employer] Relationship Specialty Start Date End Date Bhupinder Dominguez APRN.CNP PCP - General Family Medicine 11/06/16 [employer] Relationship Specialty Start Date End Date Bhupinder Dominguez APRN.CNP PCP - General Family Medicine 11/06/16 Team Status: Active Member Role Status Dates No Primary Care Physician Family Provider Active Team Status: Inactive Member Role Status Dates Bhupinder Dominguez MANAGER GENERAL, MANAGER GENERAL-C Attending Provider Active Team Status: Inactive Member Role Status Dates Bhupinder Dominguez MANAGER GENERAL, MANAGER GENERAL-C Attending Provider, Referring Provider Active [employer] Relationship Specialty Start Date End Date Bhupinder Dominguez APRN.CNP [address] [place] [address] PCP - General Family Medicine 11/06/16 [employer] Relationship Specialty Start Date End Date Bhupinder Dominguez APRN.CNP [address] [place] [address] PCP - General Family Medicine 11/06/16 [employer] Relationship Specialty Start Date End Date Bhupinder Dominguez APRN.CNP [address] [place] [address] PCP - General Family Medicine 11/06/16 Reason for Visit (unrecogniz ed section and content) Reason Comments ED Follow-up Reason Comments Follow Up Achilles tendonitis FOR RECORDS PERTAINING TO PATIENTS WHO ARE OR HAVE BEEN ENROLLED IN A CHEMICAL DEPENDENCY/SUBSTANCEABUSE PROGRAM, SOME INFORMATION MAY BE OMITTED. This clinical summary was aggregated from multiple sources. Caution should be exercised in using it in the provision of clinical care. This summary normalizes information from multiple sources, and as a consequence, information in this document may materially change the coding, format and clinical context of patient data. In addition, data may be omitted in some cases. CLINICAL DECISIONS SHOULD BE BASED ON THE PRIMARY CLINICAL RECORDS. [employer] provides no warranty or guarantee of the accuracy or completeness of information in this document.
== END | disposition home or self-care (01) ==
LOC: LABSPEC 21:53
PROVIDERS: Visit Provider Nurse Practitioner
DX: G47.00 Insomnia, unspecified (principal); I10 Essential (primary) hypertension; F41.1 Generalized anxiety disorder; E78.5 Hyperlipidemia, unspecified; E03.9 Hypothyroidism, unspecified
CPT/HCPCS: 84443